=== PATIENT | female | born 1990 | race Caucasian/White ===

== ENCOUNTER 2018-01-20 19:00 | Inpatient (IN) | payer OTHER, SELFPAY ==
[2018-01-20 18:20] VITALS: BMI 28.3
--- NOTE | 2018-01-20 19:23 | PCM.HP.OB ---
- Problem List (1) Active labor Status: Acute History Date of Admission: 01/20/18 Final SOLITARIO: 01/27/18 Gestational age: 39 Weeks and 0 Days History of this : This is a 27 year-old, , at 39 weeks gestational age who presents with regular ctx's. She states ctx's started around 2 pm today. Regular and uncomfortable. No vb, lof. Good FM. Medical History: Medical History (Last Updated 01/20/18 @ 19:25 by Ann-Marie Hilario DO) Depression F32.9 History of DVT (deep vein thrombosis) Z86.718 Allergies codeine Allergy (Verified 01/20/18 18:52) Vomiting Home Medications: Home Medications Vits [Prenatabs FA] 1 tablet PO DAILY 01/20/18 Smoking Status: Never smoker Number of Fetus(es): 1 Heart Tracing: Category 1 TOCO Analysis: Ctx's q 2-4 min History Past Pregnancies: Past Pregnancies Delivery Date Name GA/Weeks Outcome Route Weight Infant Gender Labor Length Anesthesia Delivery Location Provider FOB Labs: GBS pos, 1 hr GTT 101, Rh pos, RI, HepB neg, HIV neg, Syphilis NR, GC/CT neg Expected Delivery Method: Spontaneous Vaginal Review of Systems Gynecological: Reports: - - +Ctx. No VB, LOF. Good FM Physical Exam General: Alert, Oriented x3 HEENT: Atraumatic Lungs: - - Breathing through ctx's Abdomen: Gravid Neurological: Neuro grossly intact Estimated gestational size: Appropriate for gestational size Presentation: Cephalic Cervix Dilation (cm): 3 Station: -2 Effacement (%): 80 Assessment/Plan All Active Problems Active labor (Acute) This is a 27 year-old, , at 39 weeks gestational age who presents with regular contractions and in active labor. - Cervical change from 2 > 3 cm - GBS pos, start PCN - Epidural prn - Will AROM after epidural and once she has progressed more - Routine intrapartum care - Will augment with Pitocin as needed
[2018-01-20] MEDS: Lactated Ringers 1,000 ML 50 ML IV ×2 (19:35→20:38)
[2018-01-20 19:58] LABS: Hematocrit 39.8 % (37-47); Hemoglobin 13.3 g/dl (12.0-15.0); Mean Corp Hgb Conc 33.4 g/gl (32-36); Mean Corpuscular Hgb 29.4 pg (27.0-32.0); Mean Corpuscular Volume 88.1 fL (81-99); Mean Platelet Vol. 13.6 fl (6.2-12.0); Platelet Count 175 K/mm3 (150-450); RBC Distribution Width CV 13.8 % (11.6-14.6); RBC Distribution Width SD 44.1 fl (35.1-43.9); Red Blood Count 4.52 M/mm3 (4.2-5.4); White Blood Count 13.1 K/mm3 (4.4-11.0)
[2018-01-20 20:02] LABS: Scan Indicated on CBC? Y/N NO
[2018-01-20] MEDS: fentaNYL-bupivacaine (epidural) 100 ML BAG EPIDURAL (21:42)
[2018-01-20] MEDS: Ondansetron 4 MG/2 ML Vial IV (22:47)
[2018-01-21] MEDS: Lactated Ringers 1,000 ML 50 ML IV ×2 (00:06→05:52)
[2018-01-21] MEDS: Mag Hydrox/Al Hydrox/Simeth 30 ML UDC PO (04:13)
[2018-01-21] MEDS: fentaNYL-bupivacaine (epidural) 100 ML BAG EPIDURAL (07:47)
--- NOTE | 2018-01-21 07:55 | PCM.PN.BLA ---
Progress Note Delayed entry. Cvx 10/100/0, head well applied to cervix. AROM performed in usual fashion with return of light meconium stained fluid. FHT category 1. [place] with ctx's q 2-4 min. Will labor down until pt is feeling pressure or contractions.
[2018-01-21] MEDS: Oxytocin 30 units/NS 500 ml 30 UNITS/500 ML IV.SOLN 334 UNITS IV (10:12)
--- NOTE | 2018-01-21 10:40 | PCM.OB.VAG ---
- Problem List (1) Active labor Status: Acute Vaginal Delivery Maternal Presentation: Active Labor Amniotic Membrane Rupture Type: Artificial Amniotic Fluid Description: Lightly stained meconium Final SOLITARIO: 01/27/18 Gestational age: 39 Weeks and 1 Days Date of Procedure: 01/21/18 Pre-Operative Diagnosis: Term IUP, active labor Post-Operative Diagnosis: As above Surgery/ Procedure Performed: Spontaneous Vaginal Delivery Type of Anesthesia: Epidural Description of Procedure: Patient complete and +2, and patient pushing. With each push, heart tracing was noted to be 80 bpm for about 1-2 min with recovery to a 130 bpm baseline. Discussed a possible VAVD with the patient and her and reviewed risks. After pushing with a contraction, FHT was noted to be 70 bpm. Had patient push again with quick delivery of the infant. Head, anterior shoulder, and posterior shoulder were delivered without force or delay. Viable female infant was placed on maternal abdomen. Cord was clamped and cut after 60 sec delay. Cord gases were obtained. Placenta was delivered with fundal massage. Uterus was explored x1. Fundus firm bleeding hemostatic. Second-degree perineal laceration repaired in usual fashion with 3-0 Vicryl. EBL 300 cc. Presentation: ROP Placental Delivery Description: Expressed Cord Vessel Description: 3 Vessels Cord Entanglement: None Infant A gender: Female Episiotomy Description: 2nd degree Medications given after delivery: IV Pitocin
[2018-01-21] MEDS: Oxytocin 30 units/NS 500 ml 30 UNITS/500 ML IV.SOLN 167 UNITS IV (10:42)
--- NOTE | 2018-01-21 10:45 | OP.PCM_ITS ---
- Problem List (1) Active labor Status: Acute Vaginal Delivery Maternal Presentation: Active Labor Amniotic Membrane Rupture Type: Artificial Amniotic Fluid Description: Lightly stained meconium Final SOLITARIO: 01/27/18 Gestational age: 39 Weeks and 1 Days Date of Procedure: 01/21/18 Pre-Operative Diagnosis: Term IUP, active labor Post-Operative Diagnosis: As above Surgery/ Procedure Performed: Spontaneous Vaginal Delivery Type of Anesthesia: Epidural Description of Procedure: Patient complete and +2, and patient pushing. With each push, heart tracing was noted to be 80 bpm for about 1-2 min with recovery to a 130 bpm baseline. Discussed a possible VAVD with the patient and her and reviewed risks. After pushing with a contraction, FHT was noted to be 70 bpm. Had patient push again with quick delivery of the infant. Head, anterior shoulder, and posterior shoulder were delivered without force or delay. Viable female infant was placed on maternal abdomen. Cord was clamped and cut after 60 sec delay. Cord gases were obtained. Placenta was delivered with fundal massage. Uterus was explored x1. Fundus firm bleeding hemostatic. Second- degree perineal laceration repaired in usual fashion with 3-0 Vicryl. EBL 300 cc. Presentation: ROP Placental Delivery Description: Expressed Cord Vessel Description: 3 Vessels Cord Entanglement: None A gender: Female Episiotomy Description: 2nd degree Medications given after delivery: IV Pitocin
[2018-01-21] MEDS: Ibuprofen 600 MG Tablet PO ×2 (13:56→20:01)
[2018-01-21 16:15] VITALS: BP 124/82; PULSE 79; RESP 16; TEMP 36.9; O2SAT 99
[2018-01-21 20:00] VITALS: BP 125/80; PULSE 70; RESP 16; TEMP 36.3
[2018-01-22 00:15] VITALS: BP 113/66; PULSE 64; RESP 16; TEMP 36.4
[2018-01-22] MEDS: Ibuprofen 600 MG Tablet PO ×3 (02:10→19:05)
[2018-01-22] MEDS: 0.9% Saline Lock 10 ML Syringe IV (02:30)
[2018-01-22 03:20] VITALS: BP 137/95; PULSE 67; RESP 17; TEMP 36.1
[2018-01-22] MEDS: Enoxaparin 40 MG/0.4 ML Syringe SC (06:02)
[2018-01-22] MEDS: Acetaminophen 500 MG Tablet 1000 MG PO (06:18)
--- NOTE | 2018-01-22 07:48 | PCM.PN.OB ---
Patient Problems: Active and Suspected Problems (Last Updated 01/20/18 @ 19:25 by Ann-Marie Hilario DO) Active labor (Acute) Subjective: Patient doing well. Rangel removed this AM as she had difficulty voiding yesterday due to the discomfort. She has voided in small to moderate amounts three times since spontaneously. Jasson reg diet. Ambulating without difficulty. Pain controlled. . Denies fevers, cp, sob, leg pain. - Physical Exam General: Alert, Oriented x3 HEENT: Atraumatic Lungs: - - No increased resp effort Abdomen: Soft, Non Tender, - - FF@U Extremities: No Calf Tenderness Skin: No rashes Neurological: Neuro grossly intact Psych/Mental Status: Normal Affect Vital Signs Temp Pulse Resp BP Pulse Ox 97.0 F L 67 17 137/95 H 99 01/22/18 03:20 01/22/18 03:20 01/22/18 03:20 01/22/18 03:20 01/21/18 16:15 Oxygen Delivery Method Room Air Weight: 145 lb Body Mass Index (BMI) 28.3 Intake and Output for Last 24 Hours 01/20/18 01/21/18 01/22/18 23:59 23:59 23:59 Intake Total 4924 / 4924 Output Total 500 / 500 4500 / 4500 900 / 900 Balance -500 / -500 424 / 424 -900 / -900 Medical Necessity - Tobacco Use Smoking Status: Never smoker Assessment/Plan All Active Problems (Last Updated 01/20/18 @ 19:25 by Ann-Marie Hilario DO) Active labor (Acute) day #1 s/p - Doing well - AF, VSS. Had 1 isolated mild range BP, will continue to monitor - Now voiding spontaneously. Will check PVR today - - Received first Lovenox injection today. Plan to continue for 6 weeks due to hx of DVT. Rx sent to pharmacy - PPBC: Desires Micronor. Rx sent to pharmacy - Dispo: Routine care
[2018-01-22 08:40] VITALS: BP 124/82; PULSE 71; RESP 16; TEMP 36.6; O2SAT 95
--- NOTE | 2018-01-22 12:48 | NURSING ---
Bladder scan performed directly after patient voided 200ml. Scan showed >475ml of urine in bladder. Fundus is -2, midline, and firm. Patient states I may feel a little pressure.
[2018-01-22 14:00] VITALS: BP 123/77; PULSE 77; RESP 16; TEMP 36.2; O2SAT 97
--- NOTE | 2018-01-22 15:24 | CASEMGMT ---
Social Work Labor and Delivery Unit Consult received and noted for maternal mental health history, specifically depression. Charts have been reviewed and noted that mother of baby a first time mother. Note that history of depression related to situational stress, and likely grief issues, surrounding loss of MOB's grandmother. Plan: Will plan to meet with MOB on 01.23.2018, likely in the morning timeframe for consult, support, and assessment for any resource needs. -AMINA Combs, ZIPPER LINING FOLDER
--- NOTE | 2018-01-22 17:24 | NURSING ---
Bladder scan performed on patient immediately following void. Scanned for >374ml. Uterus is -1, midline, and firm. Bladder is mildly distended upon palpation. Patient does not feel discomfort unless bladder is pressed on. Patient c/o urine stream starting and stopping multiple times while voiding. See physician notification for call to CNM.
[2018-01-22 20:16] VITALS: BP 138/81; PULSE 65; RESP 15; TEMP 36.8; O2SAT 97
[2018-01-23 02:25] VITALS: BP 130/88; PULSE 65; RESP 16; TEMP 36.7
[2018-01-23] MEDS: Ibuprofen 600 MG Tablet PO (02:36)
--- NOTE | 2018-01-23 06:26 | DCINST_ITS ---
Discharge Diet: No Restrictions Discharge Activity: Return to Normal Activity, May not drive while taking narcotic pain medications., May Shower May resume sexual activity in: 4-6 weeks Additional Activity Instructions:: Nothing in the vagina for 4-6 weeks. You may return to work/school in 6 weeks. Call your doctor if your incision/area has: Continuous Slow Oozing, Sudden Increased Bleeding, Increased Pain/ Swelling, Increased Redness, Foul Smelling Discharge Call your doctor if you observe: Fever of 101 or Higher, Inability to urinate, Inability to have a bowel movement, Using more than one pad per hour Additional Instructions: If you experience any of the following, contact your healthcare provider. * Bleeding that soaks a pad every hour for 2 hours * Fever 100.4 or higher * Unrelieved incision or abdominal pain * Swelling, redness, discharge or bleeding from your incision or episiotomy site * Your incision begins to separate * Problems urinating (including inability to urinate or burning while urinating). * Visual changes * Severe headache * Flu-like symptoms * Pain or redness in one of both of your breasts * Pain, warmth, tenderness or swelling in your legs, especially the calf area * Frequent nausea and vomiting * Symptoms of depression or anxiety If you experience any of the following, call 911 or go to the nearest Emergency Room. * Chest pain * Problems breathing * Seizure activity * Partial or complete paralysis of a body part, slurred speech, weakness or drooping of the face, or a sudden inability to walk or hold your balance Allergies/Adverse Reactions: Allergies codeine Allergy (Verified 01/20/18 18:52) Vomiting Medications to take at Discharge Vits [Prenatabs FA] 1 tablet PO DAILY 01/20/18 Enoxaparin Sodium [Lovenox] 40 mg SQ DAILY 42 Days #21 syringe 01/22/18 Norethindrone [Ortho Micronor] 0.35 mg PO DAILY #1 pkg 01/22/18 The following prescriptions were given: Enoxaparin Sodium [Lovenox] 40 mg SQ DAILY 42 Days #21 syringe Norethindrone [Ortho Micronor] 0.35 mg PO DAILY #1 pkg Please Follow Up With: Ann-Marie Hilario DO When: Call to make an appointment with your doctor in 6 weeks. If you had elevated Blood Pressure or 4th degree laceration you will need to be seen in 2 weeks. Please Follow Up With: Vanessa Harrison CNM - 2 week PP visit Primary Care Physician: Pradeep Wallace MD [Primary Care Provider] - Test Results: Test results from this visit will be discussed in further detail at your follow- up appointment, if applicable. Proposed Discharge Date: 01/23/18
--- NOTE | 2018-01-23 06:32 | PN.OBGYN_ITS ---
Patient Problems: Active and Suspected Problems (Last Updated 01/20/18 @ 19:25 by Ann-Marie Hilario DO) Active labor (Acute) Subjective: Patient sitting up in bed at this time; denies any issues or complaints at this time. Patient reports less issues with eliminating, she is able to empty her bladder without issues or difficulty. PVR decreased as the night progressed, patient denies any leaking or dribbling of urine. Denies WILLIS, scotoma or dizziness. Desires discharge to home today. Objective: Nipples without cracks or blisters, nipples slightly flat Abdomen NT x 4 quadrants, FF midline 2FB below umbilicus +2/4 reflexes in LE, no edema, negative calf tenderness to palpation Scant rubra lochia - Physical Exam General: Alert, Oriented x3, Cooperative HEENT: Atraumatic, Normocephalic Neck: Supple Lungs: Normal air movement Cardiovascular: Regular rate, Regular Rhythm Abdomen: Soft, Non Tender Extremities: No edema, Capillary Refill Less than 3 Seconds Skin: No rashes, No breakdown Musculoskeletal: No Tenderness to Palpation of Joints or Extremities Neurological: Cranial nerves II-XII grossly intact Psych/Mental Status: Normal Affect, Appropriate Vital Signs Temp Pulse Resp BP Pulse Ox 98.1 F 65 16 130/88 H 97 01/23/18 02:25 01/23/18 02:25 01/23/18 02:25 01/23/18 02:25 01/22/18 20:16 Oxygen Delivery Method Room Air Weight: 145 lb Body Mass Index (BMI) 28.3 Intake and Output for Last 24 Hours 01/21/18 01/22/18 01/23/18 23:59 23:59 23:59 Intake Total 4924 / 4924 Output Total 4500 / 4500 2600 / 2600 650 / 650 Balance 424 / 424 -2600 / -2600 -650 / -650 Medical Necessity - Tobacco Use Smoking Status: Never smoker Assessment/Plan All Active Problems (Last Updated 01/20/18 @ 19:25 by Ann-Marie Hilario DO) Active labor (Acute) 27 y/o s/p , PPD #2, PP course complicated by Urinary Retention and increased Postvoid Residual 1) Discharge patient to home 2) Education on frequent toileting reviewed 3) RTC to [facility] in 2 and 6 weeks PP. Vanessa CRAWFORD
[2018-01-23] MEDS: Enoxaparin 40 MG/0.4 ML Syringe SC (06:52)
--- NOTE | 2018-01-23 10:52 | CASEMGMT ---
Social Work Labor and Delivery Unit Brief Assessment. Refer to documentation below for details. Date of Referral/Notification: 01/21/2018 Time of Referral: 1310 Referred By: Dr. Zambrano Reason for Referral: maternal history of depression Date of Intervention: 01/22/2018 Time of Intervention: 909 Informant: Medical record and patient/mother of baby (MOB) History: JACKELINE is a 27-year-old female who delivered baby girl Erin Ladd on 01.21.2018. Father of baby is Ryan Ladd, age 26, to MOB since 2017 but involved in a relationship for 5 years. MOB is G1, P0 to 1 after delivering Erin. care good starting at 7 weeks gestation. Baby delivered weighing 7 pounds 2 ounces, Apgars 8 and 9 at 1 and 5 minutes of life. Chart indicates a family history of JACKELINE having a great aunt with downs syndrome, a niece with anencephaly, MOB?s mother with congenital heart issues, and FOB and FOB?s sister with MVP. Both MOB and FOB are college educated and gainfully employed. MOB works in banking and FOB is an scientist propagator. MOB reports history of depression after her grandmother in 2014 and was on Zoloft until about 2017 when MOB and FOB started to try for conception. No reports of any history of suicidal ideation or attempts. MOB reports was on Zoloft, no history of counseling. No reports of any drug or alcohol issues for this MOB, drug screen prenatally on 06.14.2017 negative for any drugs of abuse. Assessment: MOB pleasant, friendly, cooperative, good eye contact, bright affect, appearing happy mood. MOB sitting on edge of bed during social work visit as FOB lying in bed doing skin to skin with baby. FOB also participated in conversation and was appropriate and gentle in handling baby. MOB and FOB both listened to education about depression and anxiety, and MOB expressing awareness of need to talk with others should symptoms arise. MOB reports that she and FOB have talked, and FOB knows he may see signs in MOB before MOB sees signs in herself. Discussed risk factors and possible interventions to assist should symptoms arise (medication, counseling, self-care). MOB did become teary eyed when talking about the loss and grief she experienced after the loss of her grandmother. MOB and FOB did just move 3 weeks ago into a new home, so this is a big life change, but also identified as a positive change as MOB and FOB are now closer in proximity to MOB?s family who will be the primary helpers available to help with the baby when and if needed. FOB?s family is reported be supportive as well, but MOB?s family will be the primary support. FOB is taking a week off work to help. MOB and FOB reports to have needed supplies for baby, report to have adequate help, and MOB reports to feel a connection to baby already. No needs for home going identified. MOB receptive to taking depression packet. Information on [facility] also given, though no referral made at this time. Plan: MOB and baby to home later today. Resources for home going provided. No further needs requested or indicated. -JODY Combs, INTELLIGENCE OPERATIONS
[2018-01-23 11:00] VITALS: BP 123/86; PULSE 95; RESP 16; TEMP 36.9; O2SAT 96
== END 2018-01-23 12:45 | disposition home or self-care (01) | DRG 807 ==
LOC: WPOUT 19:12 → WP 19:12
PROVIDERS: Admitting Provider Obstetrics & Gynecology; Family Provider Family Medicine; PCP Family Medicine; Visit Provider Obstetrics & Gynecology
DX: O77.0 Labor and delivery complicated by meconium in amniotic fluid (principal); Z37.0 Single live birth; O70.1 Second degree perineal laceration during delivery; O99.824 Streptococcus B carrier state complicating childbirth; O90.89 Other complications of the puerperium, not elsewhere classified; R33.8 Other retention of urine; R39.198 Other difficulties with micturition; Z3A.39 39 weeks gestation of pregnancy; Z86.718 Personal history of other venous thrombosis and embolism
CPT/HCPCS: 59025; 59050; 85027; 86850; 86900; 99218; J7120; A4216; G0378; J2405

== ENCOUNTER 2018-01-26 10:00 | Outpatient (CLI) | payer OTHER, SELFPAY | END 2018-01-26 11:00 | disposition home or self-care (01) | LOC: WPOUT 15:38 → WP 15:38 | PROVIDERS: Family Provider Family Medicine; PCP Family Medicine; Referring Provider Obstetrics & Gynecology; Visit Provider Obstetrics & Gynecology | DX: O92.79 Other disorders of lactation (principal) | CPT/HCPCS: 96152 ==

== ENCOUNTER 2018-10-12 07:51 | Emergency (ER) | payer OTHER, SELFPAY ==
[2018-10-12 07:54] VITALS: BP 119/66; PULSE 99; RESP 17; TEMP 37.1; O2SAT 98
--- NOTE | 2018-10-12 08:22 | ED.VISSUMM ---
- ER Visit Summary Date of Service: 10/12/18 Chief Complaint: Headache and muscle aches History of Present Illness: The patient is a 28 F with a headache and muscle aches for 6 days. Associated with nausea, vomiting, decreased appetite, night sweats, chills, and fevers. She did find a dog tick on her scalp. Denies any travel. Denies any changes in her medications. She is breast-feeding. [place] any other associated symptoms like rash, respiratory symptoms, chest pain, diarrhea or abdominal pain, urinary symptoms, joint aches. Denies neck stiffness or change in mental status. Physical Examination: Afebrile and vital signs are unremarkable. Patient alert and oriented. No acute distress. Sitting comfortably. Head and neck unremarkable. Neck shows good range of motion. Heart regular. Lungs clear. Extremities unremarkable and atraumatic. No rash noted. Cranial nerves grossly intact. Test Results: We will check basic labs and test. Will send testing for Lyme and [place] spotted fever. Emergency Department Course and Treatment: This is likely a viral illness. Patient treated with fluids and Zofran. Will check the above labs. CBC unremarkable. BMP also unremarkable. hCG negative. Lyme and [place] spotted fever testing are pending. The patient's tick exposure and timing and [place] spotted fever. Guidelines do not recommend treatment at this point. Furthermore, patient is breast-feeding. Patient will monitor for any new or worsening issues. Return for any problems. Otherwise, follow-up with her PCP this upcoming week. Treatment Plan: As above Disposition: Discharge Impression: 1. Influenza-like illness This note was generated with [employer] dictation software. It may contain incorrect words, spelling, and punctuation that were not noted in review of the chart prior to signing ED Disposition - Plan for ED Patient: Referrals: Pradeep Wallace MD [Primary Care Provider] -
[2018-10-12] MEDS: 0.9% Normal Saline 1,000 ML 999 ML IV (08:50)
[2018-10-12 08:54] LABS: Absolute Lymphocyte Count 5.43 X10^3/ul (0.83-4.51); Basophil# 0.41 X10^3/uL; Basophil% 4.7 % (0-1); Hematocrit 38.2 % (37-47); Hemoglobin 12.8 g/dl (12.0-15.0); Lymphocyte # 5.43 X10^3/ul (4.0); Lymphocyte % 62.6 % (19-41); Mean Corp Hgb Conc 33.5 g/gl (32-36); Mean Corpuscular Hgb 28.3 pg (27.0-32.0); Mean Corpuscular Volume 84.3 fL (81-99); Mean Platelet Vol. 10.8 fl (6.2-12.0); Monocyte# 0.83 X10^3/uL; Monocyte% 9.6 % (0-10); Neutrophil # 1.98 X10^3/uL (2.7-7.7); Neutrophil % 22.9 % (47-70); POSITIVE COUNT NO; POSITIVE DIFFERENTIAL YES; POSITIVE MORPHOLOGY YES; Platelet Count 171 K/mm3 (150-450); RBC Distribution Width CV 13.2 % (11.6-14.6); RBC Distribution Width SD 40.3 fl (35.1-43.9); Red Blood Count 4.53 M/mm3 (4.2-5.4); White Blood Count 8.7 K/mm3 (4.4-11.0)
[2018-10-12 08:55] LABS: Differential Indicated SCAN CRITERIA MET
--- NOTE | 2018-10-12 08:56 | ED.RN ---
REPORTS RECENT HX OF GENERAL BODY ACHES, LOSS OF APPETITE, CHILLS, HEADACHES, LOW GRADE TEMP. SAW PCP STARTED ON ANTIBIOTICS. TICK FOUND ON HEAD LAST PM.
[2018-10-12 09:01] LABS: Internal QC Validated? YES +Cl - CLEAR BKGD; Pregnancy, Serum, hCG Quali. NEGATIVE Negative
[2018-10-12 09:05] LABS: Anion Gap 4 (5-15); BUN 11 mg/dL (7-18); Calcium,Total 8.6 mg/dL (8.5-10.1); Chloride 109 mmol/L (98-107); Creatinine, Serum 0.91 mg/dL (0.55-1.02); EST Glomerular Filtration Rate 77 mL/min (>60); Est Glom Filt Rate - Afr Amer 94 mL/min (>60); Estimated Creatinine Clearance 78.77 ml/min; Glucose 168 mg/dL (74-106); Potassium 3.5 mmol/L (3.5-5.1); Sodium Level 139 mmol/L (136-145)
--- NOTE | 2018-10-12 10:45 | ED.DEP ---
ED Disposition - Plan for ED Patient: Instructions: FEBRILE ILLNESS, Uncertain Cause (Adult) Referrals: Pradeep Wallace MD [Primary Care Provider] -
[2018-10-15 11:26] LABS: Lyme Scn Total Ab w/Rflx <0.91 ISR (0.00-0.90)
[2018-11-23 16:47] LABS: Lyme Ab Screen Interpretation REF LAB
== END 2018-10-12 11:31 | disposition home or self-care (01) ==
LOC: ED 08:36
PROVIDERS: Emergency Provider Emergency Medicine; Family Provider Family Medicine; PCP Family Medicine
DX: J11.1 Influenza due to unidentified influenza virus with other respiratory manifestations (principal); F32.9 Major depressive disorder, single episode, unspecified
CPT/HCPCS: 80048; 84703; 85025; 86618; 96360; 96361; 99283; J7030; A4216; J2405

== ENCOUNTER 2018-10-20 19:11 | Emergency (ER) | payer OTHER, SELFPAY ==
[2018-10-20 19:12] VITALS: BP 135/81; PULSE 86; RESP 16; TEMP 36.7; O2SAT 99; BMI 23.5
[2018-10-20 20:47] LABS: Internal QC Validated? YES +Cl - CLEAR BKGD; Monotest POSITIVE (Negative)
--- NOTE | 2018-10-20 20:59 | ED.VISSUMM ---
- ER Visit Summary Date of Service: 10/20/18 Chief Complaint: [Rash] History of Present Illness: The patient is a 28 F [presents to the emergency department with complaints of feeling ill for about 3 weeks. Patient states she initially started with fever and chills as well as body aches. Patient had a sore throat. She was started on amoxicillin about a week and a half ago. Patient subsequently found a tick in her hair that was identified as a dog tick. Patient presented to the emergency department and was told that she would have labs sent for Lyme disease and as well as [place] spotted fever. Patient states that her Lyme disease testing came back negative. Patient states that the [place] spotted fever testing was not ordered. Today patient noted a rash on her body and so she discontinued the amoxicillin and was started on doxycycline today. Patient still complaining of a sore throat x1 week. Overall she states she actually feels improved. Patient still concerned about [place] spotted fever given the rash and the tach.] Physical Examination: [HEENT-PERRLA, EOMI. Cranial nerves II through XII grossly intact. TMs clear. Mucous membranes moist. Patient has anterior and posterior cervical lymphadenopathy noted. Cardiovascular-regular rate and rhythm without murmur or ectopy Lungs-clear to auscultation, chest wall stable without crepitus or subcu emphysema Abdomen-normoactive bowel sounds, soft, nontender, no rebound or rigidity, no peritoneal signs. Skin exam-patient has an erythematous blanching rash that is diffuse on the face, trunk, and extremities. The rash does not involve the hands or the soles of the feet. There are no petechiae or purpura. There are no vesicles. Extremities-intact ?4, normal range of motion, normal pulses, atraumatic] Test Results: [Patient had a Monospot test that was positive. I initially also ordered IgG and IgM studies for [place] spotted fever. Those results will be pending as a take 3 or 4 days to get results.] Emergency Department Course and Treatment: [At this point I recommended that she continue with her doxycycline until her test results return in 3 or 4 days. I recommended avoiding amoxicillin in the future. She is to completely discontinue the amoxicillin. I feel the rash is likely related to the mononucleosis and the use of amoxicillin. I do not feel patient has exam consistent with [place] spotted fever. I recommended the patient discuss with her CHEMICAL PROJECT ENGINEER on continuing breast-feeding due to risk of transmission of [place] virus in the note.] Treatment Plan: [Advised on pushing fluids and using Tylenol for discomfort and she can also use Benadryl for itching.] Disposition: [Discharged home in stable condition.] Impression: [Mononucleosis Drug eruption rash] This note was generated with [employer] dictation software. It may contain incorrect words, spelling, and punctuation that were not noted in review of the chart prior to signing ED Disposition - Plan for ED Patient: Referrals: Stuart Chavez, FERRY CAPTAIN-C [Primary Care Provider] -
--- NOTE | 2018-10-20 21:04 | DCINST.ED_ITS ---
ED Disposition - Plan for ED Patient: Instructions: Mononucleosis, ALLERGIC REACTION, Drug Referrals: Stuart Chavez, RESTAURANT KITCHEN AND SERVICE MANAGER-C [Primary Care Provider] - Additional Instructions: avoid amoxicillin in the future
--- NOTE | 2018-10-20 21:04 | ED.DEP ---
ED Disposition - Plan for ED Patient: Instructions: Mononucleosis, ALLERGIC REACTION, Drug Referrals: Stuart Chavez, BEAD PICKER-C [Primary Care Provider] - Additional Instructions: avoid amoxicillin in the future
--- NOTE | 2018-10-20 21:08 | ED.DEP ---
ED Disposition - Plan for ED Patient: Instructions: Mononucleosis, ALLERGIC REACTION, Drug Prescriptions: Prednisone [Deltasone] 20 mg PO BID #10 tab Prescription Printed Referrals: Stuart Chavez, MEDICAL ADMINISTRATIVE TECHNICIAN-C [Primary Care Provider] - Additional Instructions: avoid amoxicillin in the future
[2018-10-20] MEDS: dexAMETHasone 4 MG Tablet 10 MG PO (21:20)
[2018-10-20 21:26] VITALS: BP 126/100; PULSE 67; RESP 18; O2SAT 98
== END 2018-10-20 21:27 | disposition home or self-care (01) ==
PROVIDERS: Emergency Provider Emergency Medicine; Family Provider Nurse Practitioner Family; PCP Nurse Practitioner Family
DX: B27.90 Infectious mononucleosis, unspecified without complication (principal); L27.0 Generalized skin eruption due to drugs and medicaments taken internally; T36.0X5A Adverse effect of penicillins, initial encounter; Y92.9 Unspecified place or not applicable
CPT/HCPCS: 86308; 99283

== ENCOUNTER → 2020-05-05 17:10 | Outpatient (CLI) | payer OTHER, SELFPAY | PROVIDERS: PCP Nurse Practitioner Family; Referring Provider Obstetrics & Gynecology; Visit Provider Obstetrics & Gynecology | DX: Z03.818 Encounter for observation for suspected exposure to other biological agents ruled out (principal) | CPT/HCPCS: 87635; C9803; U0005; U0003 ==

== ENCOUNTER 2020-05-10 01:55 | Inpatient (IN) | payer OTHER, SELFPAY ==
[2020-05-10] VITALS (80 sets, daily range): BP systolic 86–137; BP diastolic 43–89; PULSE 63–120; RESP 14–22; TEMP 36.1–37.4; O2SAT 82–100; BMI 29.5
[2020-05-10] MEDS: Lactated Ringers 500 ML 999 ML IV ×2 (02:35→03:56)
[2020-05-10 02:48] LABS: Absolute Neutrophil Count 7.6 X10^3/uL (2.0-7.7); Basophil# 0.04 X10^3/uL; Basophil% 0.4 % (0-1); Eosinophil# 0.17 X10^3/uL; Eosinophils% 1.5 % (0-5); Hemoglobin 13.4 g/dL (12.0-15.0); Mean Corp Hgb Conc 33.5 g/dL (32-36); Mean Corpuscular Volume 89.5 fL (81-99); Mean Platelet Vol. 12.3 fl (6.2-12.0); Monocyte% 6.2 % (0-10); NRBC Flagged by Analyzer 0 % (0-5); Neutrophil # 7.58 X10^3/uL (2.7-7.7); Neutrophil % 67.4 % (47-70); Platelet Count 199 K/mm3 (150-450); RBC Distribution Width CV 13.5 % (11.6-14.6); RBC Distribution Width SD 44.5 fl (35.1-43.9); Red Blood Count 4.47 M/mm3 (4.2-5.4); White Blood Count 11.3 K/mm3 (4.4-11.0)
[2020-05-10] MEDS: Lactated Ringers 1,000 ML 200 ML IV ×2 (03:06→07:31)
[2020-05-10] MEDS: Cefazolin 2 GM in 0.9% Normal Saline 100 ML IV (04:09)
[2020-05-10] MEDS: fentaNYL-bupivacaine (epidural) 100 ML BAG EPIDURAL (04:09)
[2020-05-10] MEDS: Mag Hydrox/Al Hydrox/Simeth 30 ML UDC PO (04:27)
[2020-05-10] MEDS: Ondansetron 4 MG/2 ML Vial IV (04:28)
--- NOTE | 2020-05-10 05:49 | PCM.HP.OB ---
- Problem List (1) 40 weeks gestation of Status: Acute (2) Multiparous Status: Acute (3) Uterine contractions Status: Acute (4) Positive GBS test Status: Acute History Date of Admission: 05/10/20 Final SOLITARIO: 05/08/20 Gestational age: 40 Weeks and 2 Days History of this : This is a 29 year-old, G 2, P 1, at 40 weeks gestational age who presents with ctx's q 1-2 min and cvx 3 cm dilated. No lof, vb. +FM. Medical History: Medical History (Last Updated 01/20/18 @ 19:[address] Ann-Marie Hilario, DO) Depression F32.9 History of DVT (deep vein thrombosis) Z86.718 Allergies codeine Allergy (Verified 10/20/18 20:20) Vomiting Penicillins Allergy (Verified 05/10/20 02:23) Rash Home Medications: Home Medications Norethindrone [Ortho Micronor] 0.35 mg PO DAILY #1 pkg 01/22/18 Sertraline HCl 50 mg PO DAILY 10/12/18 Prednisone [Deltasone] 20 mg PO BID #10 tab 10/20/18 Doxylamine Succinate [Unisom Sleep Aid] 25 mg PO PRN 05/10/20 Vit,Calc76/Iron/Folic [Pnv 29-1 Tablet] 1 ea PO DAILY 05/10/20 Smoking Status: Never smoker Substance Use Type: Sleep Aides Number of Fetus(es): 1 NST - FHR Rate Baby A Baseline: 150 Variability:: Moderate Accelerations:: 15 x 15 Decelerations:: Late - after epidural, no on admission, Prolonged - after epidural, not on admission NST Reactive:: Yes FHR Category:: Category II Uterine Activity:: Ctx q 2-4 min History Past Pregnancies: Past Pregnancies Delivery Date Name GA/ Weeks Outcome Route Wt Sex Labor Length Anesthesia Delivery Location Provider FOB Labs: See [facility] record Expected Infant Delivery Method: Spontaneous Vaginal Physical Exam Vitals: Vital Signs Pulse BP Pulse Ox 85 130/78 H 100 05/10/20 05:44 05/10/20 05:42 05/10/20 05:44 General: Alert, No apparent distress HEENT: Atraumatic Abdomen: Soft, Gravid Extremities:: No edema Neurological: Neuro grossly intact ENGLISH INSTRUCTOR: Normal external genitalia Estimated gestational size: Appropriate for gestational size Presentation: Cephalic Cervix Dilation (cm): 4 Station: -1 Effacement (%): 80 Assessment/Plan All Active Problems (Last Updated 01/20/18 @ 19:[address] Ann-Marie Hilario, DO) Active labor (Acute) 40 weeks gestation of (Acute) Multiparous (Acute) Uterine contractions (Acute) Positive GBS test (Acute) This is a 29 year-old, G 2, P 1, at 40 weeks gestational age admitted in early labor. - Routine intrapartum care - Post epidural FHT with late and prolonged decelerations. AROM was performed for clear fluid and IUPC placed. Scalp stimulation was performed with an acceleration noted. FHT now moderate variability and no further decelerations. Will continue to monitor closely - Epidural for pain control - Ancef for GBS positive - H/o DVT: Will need Lovenox for 6 weeks - Pelvis adequate and EFW expected to be < 4500 g. Anticipate vaginal delivery
[2020-05-10] MEDS: Amnioinfusion- 0.9% NS 1,000 ML IV.SOLN. INTRA-UTER (07:16)
--- NOTE | 2020-05-10 07:34 | PN_ITS ---
Progress Note Called for variable decelerations. At bedside to examine patient and amnioinfusion started. After 15 min of amnioinfusion FHT 150/mod heath/no acce ls/+occasional variable decels. Cont to closely monitor for now. Discussed with pt possibility of a section and questions answered. STROKE Vital Signs/Narrative: Vital Signs Temp Pulse BP Pulse Ox 05/10/20 06:45 98.3 F 109 H 114/65 05/10/20 06:43 107 H 96 05/10/20 06:38 112 H 95 05/10/20 06:33 101 H 97 05/10/20 06:28 120 H 96 05/10/20 06:23 92 95 05/10/20 06:18 103 H 97 05/10/20 06:16 88 120/70 05/10/20 06:13 96 05/10/20 06:08 98 95 05/10/20 06:03 87 96 05/10/20 05:58 104 H 97 05/10/20 05:56 103 H 94 05/10/20 05:53 84 97 05/10/20 05:44 85 100 05/10/20 05:42 97.8 F 71 130/78 H 05/10/20 05:39 79 100 05/10/20 05:34 81 100 05/10/20 05:29 79 100 05/10/20 05:24 98 100 05/10/20 05:22 85 113/69 05/10/20 05:14 86 112/74 100 05/10/20 05:09 99 100 05/10/20 05:06 77 112/69 05/10/20 05:04 63 100 05/10/20 04:56 78 108/63 05/10/20 04:47 87 98 05/10/20 04:42 85 99 05/10/20 04:41 80 111/68 05/10/20 04:37 80 98 05/10/20 04:32 86 99 05/10/20 04:27 93 97 05/10/20 04:26 116/68 05/10/20 04:22 95 99 05/10/20 04:21 97/58 L 05/10/20 04:17 110 H 99 05/10/20 04:16 113/76 05/10/20 04:12 100 111/73 97 05/10/20 04:07 105 H 98 05/10/20 04:06 86 116/76 05/10/20 04:02 83 100 05/10/20 04:01 98.3 F 77 129/87 H 05/10/20 04:00 68 126/84 H 05/10/20 03:57 65 99 05/10/20 03:56 70 86/50 L 05/10/20 03:52 87 98 05/10/20 03:51 94/51 L 05/10/20 03:47 108 H 98 05/10/20 03:42 94 98 05/10/20 03:41 95 114/79 05/10/20 03:37 90 135/88 H 99
--- NOTE | 2020-05-10 08:28 | PCM.PN.BLA ---
Progress Note Cvx 5/80/-1. FHT 150/min heath/no accels/no decels. Scalp stim performed and FHT now 150/mod heath/no accels/no decels. Recommended section given intolerance to labor. Discussed r/b/a to section and patient provides consent and desires to proceed. Will proceed with section. STROKE Vital Signs/Narrative: Vital Signs Temp Pulse BP Pulse Ox 05/10/20 07:39 90 97 05/10/20 07:38 114/66 05/10/20 07:37 98.3 F 05/10/20 06:45 98.3 F 109 H 114/65 05/10/20 06:43 107 H 96 05/10/20 06:38 112 H 95 05/10/20 06:33 101 H 97 05/10/20 06:28 120 H 96 05/10/20 06:23 92 95 05/10/20 06:18 103 H 97 05/10/20 06:16 88 120/70 05/10/20 06:13 96 05/10/20 06:08 98 95 05/10/20 06:03 87 96 05/10/20 05:58 104 H 97 05/10/20 05:56 103 H 94 05/10/20 05:53 84 97 05/10/20 05:44 85 100 05/10/20 05:42 97.8 F 71 130/78 H 05/10/20 05:39 79 100 05/10/20 05:34 81 100 05/10/20 05:29 79 100 05/10/20 05:24 98 100 05/10/20 05:22 85 113/69 05/10/20 05:14 86 112/74 100 05/10/20 05:09 99 100 05/10/20 05:06 77 112/69 05/10/20 05:04 63 100 05/10/20 04:56 78 108/63 05/10/20 04:47 87 98 05/10/20 04:42 85 99 05/10/20 04:41 80 111/68 05/10/20 04:37 80 98 05/10/20 04:32 86 99
[2020-05-10] MEDS: Sodium Citrate/Citric Acid 30 ML UDC PO (08:47)
--- NOTE | 2020-05-10 10:13 | PCM.OPRPT ---
Problem List (1) 40 weeks gestation of Status: Acute (2) Multiparous Status: Acute (3) Uterine contractions Status: Acute (4) Positive GBS test Status: Acute (5) intolerance to labor, delivered, current hospitalization Status: Acute (6) Delivery by section Status: Acute Report of Operation Date of Procedure: 05/10/20 Pre-Operative Diagnosis: 40 week gestation, multiparous patient, early labor, intolerance to labor Post-Operative Diagnosis: As above Surgery/Procedure Performed:: PLTCS via pfannenstiel incision Description of Surgical Findings:: VMI in cephalic presentation with a loose nuchal cord noted. Normal appearing placenta. Normal appearing uterus, bilateral tubes, bilateral ovaries. bath solution maker: Annamaria LUNA Type of Anesthesia:: Spinal Special Medications: None Specimen's removed: Placenta Drains: Rangel Estimated Blood Loss (mL): 2000 Fluids Replaced: 800 Description of Procedure: The patient was taken back to the operating room where epidural was removed and spinal anesthesia was performed. She was prepped and draped in the dorsal position with a leftward tilt in usual sterile fashion. Anesthesia was found be adequate. A Pfannenstiel skin incision was made with a scalpel and this was carried down to the underlying layer of fascia. The fascia was incised in the midline. The fascia was extended laterally using Garcia scissors. The fascia was dissected off of the rectus muscles using a combination of blunt and sharp dissection. The rectus muscles were in the midline. The peritoneum was entered sharply with good visualization of the bladder. The peritoneum was bluntly. A bladder blade was inserted. A low transverse incision was made on the uterus with a scalpel with good visualization of the bladder. The uterine incision was extended bluntly. Using a hand from below from a nurse, the head was flexed and brought to the hysterotomy. The head was delivered followed by anterior shoulder, posterior shoulder, and body of infant without any force or delay. A viable male infant was delivered atraumatically and the cord was clamped and cut immediately. The baby was handed off to the nursery staff. Cord gases were sent. The placenta was removed with manual extraction. Uterus was exteriorized. The uterus was cleared of all clot and debris. Significant bleeding was noted from the left side of the hysterotomy. Ring forceps were placed and a left cervical extension was noted. Vicryl was used in a running locked fashion to close the extension. Vicryl was then used in a running locked fashion to close the hysterotomy. Several additional [id number] sutures were placed for hemostasis. A second imbricating layer of Vicryl was used on the hysterotomy. A small and stable hematoma was noted in the left broad ligament. The uterus was placed back into the abdomen. Hemostasis was again noted and the hematoma was stable. FloSeal was placed along the left cervical extension and left side of the hysterotomy. The peritoneum was closed with Vicryl in a running fashion. The rectus muscles were noted to be hemostatic. The fascia was closed in a running fashion with Vicryl. The subcutaneous space was irrigated and made hemostatic with Bovie cautery. The subcutaneous space was reapproximated. The skin was closed with Monocryl subcuticular fashion. Steri-Strips and dressing were placed. Instrument, sponge, needle counts were correct. The patient was taken to the recovery room in stable condition. Grafts/Implants Used: None - Complications None - Admit VTE Documentation VTE Present on Admission: No VTE Mechan Device Prophylaxis: [facility] [place]'s VTE Pharm Prophylaxis ordered?: No Delivery Classification: RIYA Type of Anesthesia:: Spinal Indications for : Distress Amniotic Fluid Description: Lightly stained meconium Drain: Rangel to straight drain Cord Entanglement: Around neck x 1, loose Nuchal Cord Compression: Without compression Cord Vessel Description: 3 Vessels Gender: Male (1 minute): 8 (5 minute): 9 Delayed cord clamping: No Antibiotic Given: Ancef 2 grams IV x1, Zithromax 500 mg/5 mL X1 Pt instructed on risks of surgery: Bleeding, Infection, Need for Future C-Sections, Injury to surrounding structure(s) including bowel and bladder Complications: None
[2020-05-10] MEDS: Oxytocin 30 units/NS 500 ml 30 UNITS/500 ML IV.SOLN 167 UNITS IV (10:20)
[2020-05-10] MEDS: Lactated Ringers 1,000 ML 999 ML IV (10:33)
[2020-05-10] MEDS: Lactated Ringers 1,000 ML 100 ML IV (13:37)
[2020-05-10] MEDS: Acetaminophen 500 MG Tablet 1000 MG PO ×2 (16:15→22:02)
[2020-05-10] MEDS: Ketorolac 30 MG/ML Syringe IV ×2 (16:16→22:01)
[2020-05-10 16:31] LABS: Hematocrit 27.9 % (37-47); Hemoglobin 9.4 g/dL (12.0-15.0); Mean Corp Hgb Conc 33.7 g/dL (32-36); Mean Corpuscular Hgb 30.8 pg (27.0-32.0); Mean Corpuscular Volume 91.5 fL (81-99); Mean Platelet Vol. 12.2 fl (6.2-12.0); Platelet Count 146 K/mm3 (150-450); RBC Distribution Width CV 13.5 % (11.6-14.6); RBC Distribution Width SD 45.1 fl (35.1-43.9); Red Blood Count 3.05 M/mm3 (4.2-5.4); White Blood Count 17.8 K/mm3 (4.4-11.0)
--- NOTE | 2020-05-10 17:39 | PN_ITS ---
Progress Note Bedside to check on patient and review CBC results. Patient reports lightheadedness and dizziness with movement. She feels fatigued. Otherwise she is doing well. Pain is well controlled. Tolerating regular diet without nausea or vomiting. She has not ambulated out of bed. Grant remains in place. Lochia normal. She is breast-feeding without complaints. VSS Gen- NAD, well appearing, comfortable Abd- Soft, minimal distension, ATTP, no rebounding, no guarding, no rigidity, dressing c/d/i Ext- SCD's in place A/P: S/p primary section for distress in labor - Discussed surgery again with pt and and questions answered. Pt had a left cervical extension resulting in an estimated 2L EBL. Hbg 9 post op from 13 pre op, and discussed acute blood loss anemia likely from cervical extension. Vitals are stable and pt's pain is well controlled. Her abdomen is soft and non- acute. She is likely adjusting from the acute blood loss anemia. Discussed to let us know if her symptoms worsen. Will recheck CBC in AM. To keep grant in overnight. Pt and comfortable with plan - Otherwise she is doing well and has no complaints STROKE Vital Signs/Narrative: Vital Signs Temp Pulse Resp BP BP Pulse Ox 05/10/20 16:00 99.3 F H 84 18 102/60 100 05/10/20 15:01 85 16 100 05/10/20 14:15 97.3 F L 83 16 101/64 99
[2020-05-10 21:09] LABS: Hematocrit 26.4 % (37-47); Hemoglobin 8.9 g/dL (12.0-15.0); Mean Corp Hgb Conc 33.7 g/dL (32-36); Mean Corpuscular Hgb 30.3 pg (27.0-32.0); Mean Corpuscular Volume 89.8 fL (81-99); Mean Platelet Vol. 12.1 fl (6.2-12.0); Platelet Count 143 K/mm3 (150-450); RBC Distribution Width CV 13.7 % (11.6-14.6); RBC Distribution Width SD 44.7 fl (35.1-43.9); Red Blood Count 2.94 M/mm3 (4.2-5.4); White Blood Count 13.3 K/mm3 (4.4-11.0)
[2020-05-10] MEDS: Enoxaparin 40 MG/0.4 ML Syringe SC (21:29)
--- NOTE | 2020-05-10 21:43 | NURSING ---
2130 pt wanting to stand at bedside ok per dr. hubbard wanting pt to direct how muuch is is up by how she feels with dizziness an lightheaddedness. was able to stand for approx 8 min and walk in place without difficulty. back to bed.
[2020-05-10] MEDS: 0.9% Saline Lock 10 ML Syringe IV (22:04)
[2020-05-11 00:15] VITALS: BP 93/53; PULSE 86; RESP 18; TEMP 36.6; O2SAT 96
[2020-05-11] MEDS: Acetaminophen 500 MG Tablet 1000 MG PO ×4 (03:58→22:04)
[2020-05-11] MEDS: 0.9% Saline Lock 10 ML Syringe IV ×2 (03:59→09:58)
[2020-05-11] MEDS: Ketorolac 30 MG/ML Syringe IV ×2 (03:59→09:58)
[2020-05-11 04:08] VITALS: BP 101/68; PULSE 84; RESP 16; TEMP 36.5; O2SAT 99
[2020-05-11 06:11] LABS: Hematocrit 26.4 % (37-47); Hemoglobin 8.9 g/dL (12.0-15.0); Mean Corp Hgb Conc 33.7 g/dL (32-36); Mean Corpuscular Hgb 30.7 pg (27.0-32.0); Mean Platelet Vol. 12.5 fl (6.2-12.0); Platelet Count 153 K/mm3 (150-450); RBC Distribution Width CV 13.9 % (11.6-14.6); RBC Distribution Width SD 45.7 fl (35.1-43.9); White Blood Count 13.8 K/mm3 (4.4-11.0)
[2020-05-11 08:00] VITALS: BP 102/68; PULSE 84; RESP 16; TEMP 36.2
[2020-05-11] MEDS: Senna/Docusate Sodium 1 Tablet PO (09:56)
--- NOTE | 2020-05-11 11:41 | PCM.PN.OB ---
Patient Problems: Active and Suspected Problems 40 weeks gestation of (Acute) Multiparous (Acute) Uterine contractions (Acute) Positive GBS test (Acute) intolerance to labor, delivered, current hospitalization (Acute) Delivery by section (Acute) Subjective: Pain better controlled today, no nausea or vomiting. Average lochia. Denies any chest pain, shortness of breath, lightheadedness or dizziness when up to ambulate. She did have some lightheadedness yesterday but that is resolved. - Physical Exam Vitals/I&O's: Vital Signs Temp Pulse Resp BP Pulse Ox 97.2 F L 84 16 102/68 99 05/11/20 08:00 05/11/20 08:00 05/11/20 08:00 05/11/20 08:00 05/11/20 04:08 Oxygen Delivery Method Room Air Weight: 68.6 kg Body Mass Index (BMI) 29.5 Intake and Output for Last 24 Hours 05/09/20 05/10/20 05/11/20 23:59 23:59 23:59 Intake Total 5793.33 / 5793.33 600 / 600 Output Total 2760 / 2760 1500 / 1500 Balance 3033.33 / 3033.33 -900 / -900 General: Alert, Cooperative, No apparent distress Abdomen: Soft, Distended - moderately, Tender - appropopriately, Extremities: Edema - 1+ Skin: Incision - bandage is clean, dry and intact Laboratory Results 05/10/20 16:05: WBC 17.8 H, RBC 3.05 L, Hgb 9.4 L, Hct 27.9 L, MCV 91.5, MCH 30.8, MCHC 33.7, RDW Std Deviation 45.1 H, RDW Coeff of Shade 13.5, Plt Count 146 L, MPV 12.2 H 05/10/20 21:00: WBC 13.3 H, RBC 2.94 L, Hgb 8.9 L, Hct 26.4 L, MCV 89.8, MCH 30.3, MCHC 33.7, RDW Std Deviation 44.7 H, RDW Coeff of Shade 13.7, Plt Count 143 L, MPV 12.1 H 05/11/20 06:00: WBC 13.8 H, RBC 2.90 L, Hgb 8.9 L, Hct 26.4 L, MCV 91.0, MCH 30.7, MCHC 33.7, RDW Std Deviation 45.7 H, RDW Coeff of Shade 13.9, Plt Count 153, MPV 12.5 H Current Medications Acetaminophen (Acetaminophen 500 Mg Tablet) 1,000 mg PO Q6H [facility] Last Admin: 05/11/20 09:57 Dose: 1,000 mg Documented by: Bisacodyl (Bisacodyl 10 Mg Suppository) 10 mg RECTAL UD PRN PRN Reason: If no BM Enoxaparin Sodium (Enoxaparin 40 Mg/0.4 Ml Syringe) 40 mg SC DAILY@2130 [facility] Last Admin: 05/10/20 21:29 Dose: 40 mg Documented by: Hydrocortisone (Hydrocortisone 2.5% Crm) 1 applic TOPICAL TID PRN PRN; Protocol PRN Reason: Discomfort Ibuprofen (Ibuprofen 600 Mg Tablet) 600 mg PO Q6H [facility] Methylergonovine Maleate (Methylergonovine 0.2 Mg/Ml Ampul) 0.2 mg IM X1 PRN PRN Reason: Uterine Atony Naloxone HCl (Naloxone 0.4 Mg/Ml Syringe) 0.02 mg IV Q1M PRN PRN Reason: RR <10 and pt unresponsive Ondansetron HCl (Ondansetron 4 Mg/2 Ml Vial) 4 mg IV Q4H PRN PRN PRN Reason: Nausea Oxycodone HCl (Oxycodone 5 Mg Tablet) 5 - 10 mg PO Q4H PRN PRN PRN Reason: Pain Score 4-10 Prochlorperazine Edisylate (Prochlorperazine 10 Mg/2 Ml Vial) 10 mg IV Q6H PRN PRN PRN Reason: NAUSEA Senna/Docusate Sodium (Senna/Docusate Sodium 1 Tablet) 0 tablet PO DAILY [facility] Last Admin: 05/11/20 09:56 Dose: 1 tablet Documented by: Simethicone (Simethicone 80 Mg Tablet) 80 mg PO PCHS PRN PRN Reason: Indigestion/stomach pain Sodium Chloride (0.9% Saline Lock 10 Ml Syringe) 5 - 15 ml IV UD PRN PRN Reason: SALINE FLUSH Last Admin: 05/11/20 09:58 Dose: 10 ml Documented by: Medical Necessity - Tobacco Use Smoking Status: Never smoker Assessment/Plan All Active Problems Active labor (Acute) 40 weeks gestation of (Acute) Multiparous (Acute) Uterine contractions (Acute) Positive GBS test (Acute) intolerance to labor, delivered, current hospitalization (Acute) Delivery by section (Acute) POD#1 s/p primary c/s w/ acute blood loss hemorrhage, calculated EBL is approx 1700 cc. H/H are stable now. Patient tolerating anemia well. ambulate infant is and doing well
[2020-05-11 14:00] VITALS: BP 106/74; PULSE 89; RESP 16; TEMP 36.6
[2020-05-11] MEDS: Ibuprofen 600 MG Tablet PO ×2 (16:13→22:03)
[2020-05-11 19:52] VITALS: BP 117/72; PULSE 92; RESP 16; TEMP 36.6
[2020-05-11] MEDS: Enoxaparin 40 MG/0.4 ML Syringe SC (22:04)
[2020-05-12 01:47] VITALS: BP 106/64; PULSE 76; RESP 16; TEMP 36.6
--- NOTE | 2020-05-12 03:10 | NURSING ---
Taking over pt and at this time.
[2020-05-12 04:35] VITALS: BP 111/77; PULSE 84; RESP 18; TEMP 36.2; O2SAT 95
[2020-05-12] MEDS: Ibuprofen 600 MG Tablet PO ×2 (04:35→09:27)
[2020-05-12] MEDS: Acetaminophen 500 MG Tablet 1000 MG PO ×2 (04:36→10:28)
[2020-05-12 08:18] VITALS: BP 109/83; PULSE 94; RESP 18; TEMP 36.3; O2SAT 99
--- NOTE | 2020-05-12 08:22 | PN.OBGYN_ITS ---
Patient Problems: Active and Suspected Problems 40 weeks gestation of (Acute) Multiparous (Acute) Uterine contractions (Acute) Positive GBS test (Acute) intolerance to labor, delivered, current hospitalization (Acute) Delivery by section (Acute) Subjective: pt seen at bedside, doing well. pt reports good pain control. lochia mild. Breast feeding. - Physical Exam Vitals/I&O's: Vital Signs Temp Pulse Resp BP Pulse Ox 97.1 F L 84 18 111/77 95 05/12/20 04:35 05/12/20 04:35 05/12/20 04:35 05/12/20 04:35 05/12/20 04:35 Oxygen Delivery Method Room Air Weight: 68.6 kg Body Mass Index (BMI) 29.5 Intake and Output for Last 24 Hours 05/10/20 05/11/20 05/12/20 23:59 23:59 23:59 Intake Total 5793.33 / 5793.33 600 / 600 Output Total 2760 / 2760 2500 / 2500 Balance 3033.33 / 3033.33 -1900 / -1900 General: Alert, Oriented x3 Abdomen: Soft, Non Tender, Non-Distended, - - fundus firm Extremities: No Calf Tenderness Current Medications Acetaminophen (Acetaminophen 500 Mg Tablet) 1,000 mg PO Q6H [facility] Last Admin: 05/12/20 04:36 Dose: 1,000 mg Documented by: Bisacodyl (Bisacodyl 10 Mg Suppository) 10 mg RECTAL UD PRN PRN Reason: If no BM Enoxaparin Sodium (Enoxaparin 40 Mg/0.4 Ml Syringe) 40 mg SC DAILY@2130 [facility] Last Admin: 05/11/20 22:04 Dose: 40 mg Documented by: Hydrocortisone (Hydrocortisone 2.5% Crm) 1 applic TOPICAL TID PRN PRN; Protocol PRN Reason: Discomfort Ibuprofen (Ibuprofen 600 Mg Tablet) 600 mg PO Q6H [facility] Last Admin: 05/12/20 04:35 Dose: 600 mg Documented by: Methylergonovine Maleate (Methylergonovine 0.2 Mg/Ml Ampul) 0.2 mg IM X1 PRN PRN Reason: Uterine Atony Naloxone HCl (Naloxone 0.4 Mg/Ml Syringe) 0.02 mg IV Q1M PRN PRN Reason: RR <10 and pt unresponsive Ondansetron HCl (Ondansetron 4 Mg/2 Ml Vial) 4 mg IV Q4H PRN PRN PRN Reason: Nausea Oxycodone HCl (Oxycodone 5 Mg Tablet) 5 - 10 mg PO Q4H PRN PRN PRN Reason: Pain Score 4-10 Prochlorperazine Edisylate (Prochlorperazine 10 Mg/2 Ml Vial) 10 mg IV Q6H PRN PRN PRN Reason: NAUSEA Senna/Docusate Sodium (Senna/Docusate Sodium 1 Tablet) 0 tablet PO DAILY [facility] Last Admin: 05/11/20 09:56 Dose: 1 tablet Documented by: Simethicone (Simethicone 80 Mg Tablet) 80 mg PO PCHS PRN PRN Reason: Indigestion/stomach pain Sodium Chloride (0.9% Saline Lock 10 Ml Syringe) 5 - 15 ml IV UD PRN PRN Reason: SALINE FLUSH Last Admin: 05/11/20 09:58 Dose: 10 ml Documented by: Medical Necessity - Tobacco Use Smoking Status: Never smoker Assessment/Plan All Active Problems Active labor (Acute) 40 weeks gestation of (Acute) Multiparous (Acute) Uterine contractions (Acute) Positive GBS test (Acute) intolerance to labor, delivered, current hospitalization (Acute) Delivery by section (Acute) POD#2, doing well pain mgmt dc home ambulation
--- NOTE | 2020-05-12 08:35 | PCM.DC.BLA ---
Discharge Summary Date of Admission: 05/10/20 Date of Discharge: 05/12/20 Summary: Pt was admitted to L&D on 05/10/20 for labor- pt with intolerance to labor and underwent Primary LTCS with EBL 2000cc. Pt had uncomplicated post op course and was discharged home on POD#2 in stable condition. pt will remain on Lovenox for 6 weeks post . Iron supplementation ordered. Patient Problems: Active and Suspected Problems 40 weeks gestation of (Acute) Multiparous (Acute) Uterine contractions (Acute) Positive GBS test (Acute) intolerance to labor, delivered, current hospitalization (Acute) Delivery by section (Acute) - Physical Exam Vitals/I&O's: Vital Signs Temp Pulse Resp BP Pulse Ox 97.4 F L 94 18 109/83 H 99 05/12/20 08:18 05/12/20 08:18 05/12/20 08:18 05/12/20 08:18 05/12/20 08:18 Oxygen Delivery Method Room Air Weight: 68.6 kg Body Mass Index (BMI) 29.5 Intake and Output for Last 24 Hours 05/10/20 05/11/20 05/12/20 23:59 23:59 23:59 Intake Total 5793.33 / 5793.33 600 / 600 Output Total 2760 / 2760 2500 / 2500 Balance 3033.33 / 3033.33 -1900 / -1900 Current Medications Acetaminophen (Acetaminophen 500 Mg Tablet) 1,000 mg PO Q6H [facility] Last Admin: 05/12/20 04:36 Dose: 1,000 mg Documented by: Bisacodyl (Bisacodyl 10 Mg Suppository) 10 mg RECTAL UD PRN PRN Reason: If no BM Enoxaparin Sodium (Enoxaparin 40 Mg/0.4 Ml Syringe) 40 mg SC DAILY@2130 [facility] Last Admin: 05/11/20 22:04 Dose: 40 mg Documented by: Hydrocortisone (Hydrocortisone 2.5% Crm) 1 applic TOPICAL TID PRN PRN; Protocol PRN Reason: Discomfort Ibuprofen (Ibuprofen 600 Mg Tablet) 600 mg PO Q6H [facility] Last Admin: 05/12/20 04:35 Dose: 600 mg Documented by: Methylergonovine Maleate (Methylergonovine 0.2 Mg/Ml Ampul) 0.2 mg IM X1 PRN PRN Reason: Uterine Atony Naloxone HCl (Naloxone 0.4 Mg/Ml Syringe) 0.02 mg IV Q1M PRN PRN Reason: RR <10 and pt unresponsive Ondansetron HCl (Ondansetron 4 Mg/2 Ml Vial) 4 mg IV Q4H PRN PRN PRN Reason: Nausea Oxycodone HCl (Oxycodone 5 Mg Tablet) 5 - 10 mg PO Q4H PRN PRN PRN Reason: Pain Score 4-10 Prochlorperazine Edisylate (Prochlorperazine 10 Mg/2 Ml Vial) 10 mg IV Q6H PRN PRN PRN Reason: NAUSEA Senna/Docusate Sodium (Senna/Docusate Sodium 1 Tablet) 0 tablet PO DAILY [facility] Last Admin: 05/11/20 09:56 Dose: 1 tablet Documented by: Simethicone (Simethicone 80 Mg Tablet) 80 mg PO PCHS PRN PRN Reason: Indigestion/stomach pain Sodium Chloride (0.9% Saline Lock 10 Ml Syringe) 5 - 15 ml IV UD PRN PRN Reason: SALINE FLUSH Last Admin: 05/11/20 09:58 Dose: 10 ml Documented by:
[2020-05-12] MEDS: Senna/Docusate Sodium 1 Tablet PO (09:27)
--- NOTE | 2020-05-12 09:29 | DCINST_ITS ---
Discharge Diet: No Restrictions Discharge Activity: Return to Normal Activity, May not drive while taking narcotic pain medications., May Shower May resume sexual activity in: 4-6 weeks Additional Activity Instructions:: Nothing in the vagina for 4-6 weeks. You may return to work/school in 6 weeks. Call your doctor if your incision/area has: Continuous Slow Oozing, Sudden Increased Bleeding, Increased Pain/ Swelling, Increased Redness, Foul Smelling Discharge Additional Instructions: If you experience any of the following, contact your healthcare provider. * Bleeding that soaks a pad every hour for 2 hours * Fever 100.4 or higher * Unrelieved incision or abdominal pain * Swelling, redness, discharge or bleeding from your incision or episiotomy site * Your incision begins to separate * Problems urinating (including inability to urinate or burning while urinating). * Visual changes * Severe headache * Flu-like symptoms * Pain or redness in one of both of your breasts * Pain, warmth, tenderness or swelling in your legs, especially the calf area * Frequent nausea and vomiting * Symptoms of depression or anxiety If you experience any of the following, call 911 or go to the nearest Emergency Room. * Chest pain * Problems breathing * Seizure activity * Partial or complete paralysis of a body part, slurred speech, weakness or drooping of the face, or a sudden inability to walk or hold your balance Allergies/Adverse Reactions: Allergies codeine Allergy (Verified 10/20/18 20:20) Vomiting Penicillins Allergy (Verified 05/10/20 02:23) Rash Medications to take at Discharge Sertraline HCl 50 mg PO DAILY 10/12/18 Acetaminophen [Tylenol] 1,000 mg PO Q6H #60 tab 05/12/20 Enoxaparin [Lovenox] 40 mg SC DAILY@0 45 Days #45 syringe 05/12/20 Ferrous Sulfate 325 mg PO BID #60 tab 05/12/20 Ibuprofen [Motrin] 600 mg PO Q6H #60 tab 05/12/20 Senna/Docusate Sodium [Senokot-S] 1 tab PO DAILY #30 tab 05/12/20 SimETHICONE [Mylicon] 80 mg PO PCHS PRN #30 tab 05/12/20 The following prescriptions were given: Ferrous Sulfate 325 mg PO BID #60 tab Transmission Status: Received by LUIS VILLATORO RD Enoxaparin [Lovenox] 40 mg SC DAILY@2130 45 Days #45 syringe Transmission Status: Received by LUIS VILLATORO RD Ibuprofen [Motrin] 600 mg PO Q6H #60 tab Transmission Status: Received by LUIS SHEPARDVELAND LESLIE SimETHICONE [Mylicon] 80 mg PO PCHS PRN #30 tab PRN Reason: Indigestion/stomach pain Transmission Status: Received by LUIS VILLATORO RD Senna/Docusate Sodium [Senokot-S] 1 tab PO DAILY #30 tab Transmission Status: Received by LUIS VILLATORO RD Acetaminophen [Tylenol] 1,000 mg PO Q6H #60 tab Transmission Status: Received by LUIS VILLATORO RD When: Call to make an appointment with your doctor in 6 weeks. If you had elevated Blood Pressure or 4th degree laceration you will need to be seen in 2 weeks. Primary Care Physician: Stuart Chavez OUTPATIENT PHLEBOTOMIST, OUTPATIENT PHLEBOTOMIST-C [Primary Care Provider] - Test Results: Test results from this visit will be discussed in further detail at your follow- up appointment, if applicable.
--- NOTE | 2020-05-12 09:29 | PCM.DCVAG ---
Discharge Diet: No Restrictions Discharge Activity: Return to Normal Activity, May not drive while taking narcotic pain medications., May Shower May resume sexual activity in: 4-6 weeks Additional Activity Instructions:: Nothing in the vagina for 4-6 weeks. You may return to work/school in 6 weeks. Call your doctor if your incision/area has: Continuous Slow Oozing, Sudden Increased Bleeding, Increased Pain/ Swelling, Increased Redness, Foul Smelling Discharge Additional Instructions: If you experience any of the following, contact your healthcare provider. Bleeding that soaks a pad every hour for 2 hours Fever 100.4 or higher Unrelieved incision or abdominal pain Swelling, redness, discharge or bleeding from your incision or episiotomy site Your incision begins to separate Problems urinating (including inability to urinate or burning while urinating). Visual changes Severe headache Flu-like symptoms Pain or redness in one of both of your breasts Pain, warmth, tenderness or swelling in your legs, especially the calf area Frequent nausea and vomiting Symptoms of depression or anxiety If you experience any of the following, call 911 or go to the nearest Emergency Room. Chest pain Problems breathing Seizure activity Partial or complete paralysis of a body part, slurred speech, weakness or drooping of the face, or a sudden inability to walk or hold your balance Allergies/Adverse Reactions: Allergies codeine Allergy (Verified 10/20/18 20:20) Vomiting Penicillins Allergy (Verified 05/10/20 02:23) Rash Medications to take at Discharge Sertraline HCl 50 mg PO DAILY 10/12/18 Acetaminophen [Tylenol] 1,000 mg PO Q6H #60 tab 05/12/20 Enoxaparin [Lovenox] 40 mg SC DAILY@2129 45 Days #45 syringe 05/12/20 Ferrous Sulfate 325 mg PO BID #60 tab 05/12/20 Ibuprofen [Motrin] 600 mg PO Q6H #60 tab 05/12/20 Senna/Docusate Sodium [Senokot-S] 1 tab PO DAILY #30 tab 05/12/20 SimETHICONE [Mylicon] 80 mg PO PCHS PRN #30 tab 05/12/20 The following prescriptions were given: Ferrous Sulfate 325 mg PO BID #60 tab Transmission Status: Received by [facility] Enoxaparin [Lovenox] 40 mg SC DAILY@2130 45 Days #45 syringe Transmission Status: Received by [facility] Ibuprofen [Motrin] 600 mg PO Q6H #60 tab Transmission Status: Received by [facility] SimETHICONE [Mylicon] 80 mg PO PCHS PRN #30 tab PRN Reason: Indigestion/stomach pain Transmission Status: Received by [facility] Senna/Docusate Sodium [Senokot-S] 1 tab PO DAILY #30 tab Transmission Status: Received by [facility] Acetaminophen [Tylenol] 1,000 mg PO Q6H #60 tab Transmission Status: Received by [facility] When: Call to make an appointment with your doctor in 6 weeks. If you had elevated Blood Pressure or 4th degree laceration you will need to be seen in 2 weeks. Primary Care Physician: Stuart Chavez CRANE FOLLOWER, CRANE FOLLOWER-C [Primary Care Provider] - Test Results: Test results from this visit will be discussed in further detail at your follow-up appointment, if applicable.
== END 2020-05-12 11:10 | disposition home or self-care (01) | DRG 787 ==
PROVIDERS: Admitting Provider Obstetrics & Gynecology; PCP Nurse Practitioner Family; Visit Provider Obstetrics & Gynecology
DX: O76 Abnormality in fetal heart rate and rhythm complicating labor and delivery (principal); D62 Acute posthemorrhagic anemia; O71.3 Obstetric laceration of cervix; O90.81 Anemia of the puerperium; O69.81X0 Labor and delivery complicated by cord around neck, without compression, not applicable or unspecified; O77.0 Labor and delivery complicated by meconium in amniotic fluid; O99.824 Streptococcus B carrier state complicating childbirth; Z86.718 Personal history of other venous thrombosis and embolism; Z3A.40 40 weeks gestation of pregnancy; Z37.0 Single live birth
CPT/HCPCS: 59025; 59050; 85025; 85027; 86850; 86900; 86901; 99218; J7030; J7120; A4216; G0378; J2405

== ENCOUNTER 2020-05-13 11:26 | Emergency (ER) | payer OTHER, SELFPAY ==
[2020-05-10 02:27] VITALS: BMI 29.5
[2020-05-13 11:28] VITALS: BP 133/102; PULSE 96; RESP 17; TEMP 36.4; O2SAT 100; BMI 27.8
[2020-05-13 11:33] VITALS: BP 129/95; PULSE 88; RESP 14; O2SAT 99
--- NOTE | 2020-05-13 11:57 | CT_ITS ---
STUDY: CT BRAIN WITHOUT CONTRAST REASON FOR EXAM: Female, 29 years old. NUMBNESS TO RT SIDE OF MOUTH SINCE 9 AM. RECENT JUST DC''D FROM HOSPITAL YESTERDAY RADIATION DOSAGE (If Supplied By Facility): CTDIvol = ( 44.99 ) mGy, DLP = ( 745.49 ) mGycm TECHNIQUE: Transaxial CT imaging of the brain was performed without administration of intravenous contrast material. Individualized dose optimization techniques were used for this CT. COMPARISON: No relevant priors. FINDINGS: Normal soft tissue structures. Normal calvarium. Normal size ventricles and extra-axial spaces for the patient''s age. Normal white matter tracts of the cerebral hemispheres. Normal basal ganglia and thalami. Normal brainstem. Normal cerebellum. There is no intracranial hemorrhage. There are no findings of an acute ischemic infarction. Normal visualized paranasal sinuses. CT/Brain/Head without Contrast IMPRESSION: Normal unenhanced CT scan of the brain. Electronically Signed: Max Noguear MD at 12:31 EST , Service support ,
--- NOTE | 2020-05-13 12:21 | ED.DCSUM_ITS ---
- ER Visit Summary Date of Service: 05/13/20 Chief Complaint: Right facial paresthesias History of Present Illness: The patient is a 29 F who presents with paresthesias to her right lower lip that began today. Patient states she was having some weakness. Patient states when she was brushing her teeth today she had difficulty holding the water in her mouth. Patient admits to mild headache patient denies any visual changes. Patient states she did have some pain in her neck yesterday. Patient denies any chest pain or shortness of breath. Patient denies any difficulty breathing or difficulty swallowing. Patient states she did have a 3 days ago and is on Lovenox because she has had DVTs in the past after surgery. Physical Examination: Vital signs are stable except for blood pressure of 125/95. Patient is afebrile. Patient is in no acute distress. Cranial nerves II through XII are intact except for very slight weakness of her smile. Wrinkling of the forehead is equal bilaterally. Strength is 5/5 bilateral in the upper and lower extremities. There are no sensory deficits noted. Heart was regular rate and rhythm. Lungs are clear and equal bilaterally. Abdomen is soft. Bowel sounds are normal. There is some mild incisional tenderness. Extremities are intact. There is no calf tenderness or edema. Test Results: CT scan of the brain was obtained. There is no acute intracranial abnormality noted. This was interpreted by the radiologist and reviewed by myself. CBC shows a slight leukocytosis of 12.0. Comprehensive metabolic profile was essentially within normal limits. Emergency Department Course and Treatment: On reevaluation, patient was still having some paresthesias. I do not appreciate any facial weakness. She was advised that this could be the beginning of a Chauhan's palsy. Patient was given a prescription for prednisone. Repeat blood pressure was 117/90. I did discuss the case with her CITY DETECTIVE. The patient's blood pressure does not need to be treated at this time. Patient was instructed to follow-up with her primary care physician and CITY DETECTIVE as scheduled. Patient understood and was agreeable with the plan. All questions were answered. Disposition: Discharge home Impression: 1. Facial paresthesias 2. 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 It may contain incorrect words, spelling, and punctuation that were not noted in review of the chart prior to signing ED Disposition - Plan for ED Patient: Disposition: Home or Assisted Living Diagnosis: Facial paresthesia Instructions: ED Paraesthesias, ED Chauhan's Palsy Prescriptions: Prednisone [Deltasone] 60 mg PO DAILY #12 tab Transmission Status: Pending to [facility] Referrals: Stuart Chavez AVIATION MEDICINE SPECIALIST, AVIATION MEDICINE SPECIALIST-C [Primary Care Provider] - 5-7 Days Ann-Marie Hilario DO [STAFF PHYSICIAN] - Keep Wilmer appointment
[2020-05-13 12:41] LABS: Absolute Lymphocyte Count 2.63 X10^3/uL (0.83-4.51); Absolute Neutrophil Count 8.2 X10^3/uL (2.0-7.7); Basophil# 0.05 X10^3/uL; Basophil% 0.4 % (0-1); Eosinophil# 0.53 X10^3/uL; Eosinophils% 4.4 % (0-5); Hematocrit 34.4 % (37-47); Hemoglobin 11.4 g/dL (12.0-15.0); Lymphocyte # 2.63 X10^3/ul (4.0); Mean Corp Hgb Conc 33.1 g/dL (32-36); Mean Corpuscular Hgb 30.2 pg (27.0-32.0); Mean Platelet Vol. 11.3 fl (6.2-12.0); Monocyte# 0.48 X10^3/uL; NRBC Flagged by Analyzer 0 % (0-5); Neutrophil # 8.15 X10^3/uL (2.7-7.7); Neutrophil % 68.2 % (47-70); Platelet Count 298 K/mm3 (150-450); RBC Distribution Width CV 13.8 % (11.6-14.6); RBC Distribution Width SD 46.4 fl (35.1-43.9); Red Blood Count 3.78 M/mm3 (4.2-5.4)
[2020-05-13 12:54] LABS: ALB/GLOB Ratio 0.6 RATIO (0.9-2.4); AST(SGOT) 32 U/L (15-37); Alanine Aminotransfer ALT/SGPT 35 U/L (13-56); Albumin, Serum 2.6 g/dL (3.2-5.0); Alkaline Phosphatase 96 U/L (45-117); Anion Gap 5 (5-15); BUN 12 mg/dL (7-18); BUN/Creat Ratio 17.9 RATIO (10-20); Calcium,Total 8.7 mg/dL (8.5-10.1); Chloride 110 mmol/L (98-107); Creatinine, Serum 0.67 mg/dL (0.55-1.02); EST Glomerular Filtration Rate 109 mL/min (>60); Est Glom Filt Rate - Afr Amer 132 mL/min (>60); Estimated Creatinine Clearance 88.19 ml/min; Glucose 87 mg/dL (74-106); Protein, Total 6.6 g/dL (6.4-8.2); Sodium Level 140 mmol/L (136-145)
[2020-05-13] MEDS: predniSONE 20 MG Tablet 60 MG PO (14:08)
[2020-05-13 14:09] VITALS: BP 118/89; PULSE 97; RESP 20; O2SAT 97
== END 2020-05-13 14:37 | disposition home or self-care (01) ==
PROVIDERS: Emergency Provider Emergency Medicine; PCP Nurse Practitioner Family
DX: R20.2 Paresthesia of skin (principal); Z86.718 Personal history of other venous thrombosis and embolism; Z79.01 Long term (current) use of anticoagulants
CPT/HCPCS: 70450; 80053; 85025; 99285

== ENCOUNTER → 2023-10-11 | Outpatient (CLI) | payer OTHER, SELFPAY ==
--- NOTE | 2023-10-11 09:40 | NM_ITS ---
CLINICAL: 33-year-old female with history of abdominal pain. RADIONUCLIDE HEPATOBILIARY SCINTIGRAPHY COMPARISON: None available FINDINGS: Following the intravenous administration of 5.6 mCi of 99m Tc Mebrofenin, hepatobiliary images reveal: 1. Relatively prompt and homogeneous radiopharmaceutical concentration is noted by a normal sized liver. No parenchymal defects are identified. 2. Gallbladder activity is identified at 15 minutes post radiopharmaceutical administration. 3. Small intestinal tract is not visualized during 60 minutes of pre-CCK sequential imaging. Small bowel activity is identified following the administration of cholecystokinin. 4. Washout of the radiopharmaceutical by the hepatic parenchyma appears qualitatively normal. Cholecystokinin (0.02 ug/kg) was administered intravenously over a 30-minute period. The post CCK gallbladder ejection fraction calculated at 20 minutes following Cholecystokinin administration was noted to be 59.0 % (normal greater than 35%). During 30 minutes of post CCK imaging, there is no scintigraphic evidence of reflux of the radiotracer into the common hepatic duct or refilling of the gallbladder. NM/Hepatobilliary Img w/Pharm Int IMPRESSION: 1. NORMAL 99m Tc Mebrofenin hepatobiliary imaging examination with Cholecystokinin. A. A gallbladder ejection fraction calculated to be greater than 35% following the administration of Cholecystokinin makes the probability of functional hepatobiliary disease (gallbladder and/or sphincter of Oddi dyskinesia) and/or organic hepatobiliary disease (chronic acalculous cholecystitis and/or cystic duct syndrome) to be low. (Winifred Tafoya et al, Journal of Nuclear Medicine 32:1695, 1991). Electronically Signed: Stuart Valdovinos DO at 8:30 EDT ,
== END | disposition home or self-care (01) ==
LOC: NM 09:40
PROVIDERS: PCP Nurse Practitioner Family; Referring Provider Surgery; Visit Provider Surgery
DX: R10.9 Unspecified abdominal pain (principal)
CPT/HCPCS: 78227; A9537; J2805

== ENCOUNTER 2023-11-09 11:35 | Day surgery (SDC) | payer OTHER, SELFPAY ==
[2023-11-09] VITALS (8 sets, daily range): BP systolic 105–123; BP diastolic 78–93; PULSE 66–82; RESP 16; TEMP 36.3–36.4; O2SAT 96–100; BMI 26.6
--- NOTE | 2023-11-09 | GASB_PTH ---
PATIENT: BRIANDA PIZARRO LOC: EN U#:[id number] AGE/SX: 33/F ROOM: RE11/09/[address]: Dr. Anusha Bass MD : 1990 BED: DIS: 11/09/2023 SPEC #: [id number] RECD: 11/09/23 10:33 STATUS: RUBY ZULEIMA #: [id number] TYRESE: 11/09/23 00:[address]: Anusha Bass DEPT: SURGICAL PATHOLOGY RECD BY: Marquise Celis ENTERED: 11/10/23 10:34 SP TYPE: Gastric Bx OTHR DR: Stuart Chavez, ELECTROENCEPHALOGRAPHIC TECHNOLOGIST-C Tissues: Gastric mucous membrane Procedures: Surgery Specimen Level IV HEADER OPERATION: EGD with biopsies PRE-OP DIAGNOSIS: Epigastric abdominal pain, right upper quadrant pain TISSUE SUBMITTED: Antrum biopsy MICROSCOPIC DIAGNOSIS Gastric antrum, biopsy: Minimal chronic inflammation. See comment. Shamir 11/13/2023 COMMENT The results of immunohistochemistry for Helicobacter pylori will be reported separately ([id number]). MICROSCOPIC DESCRIPTION Slides are reviewed. GROSS DESCRIPTION Received in fixative is one container labeled with the patient's name and designated Antrum biopsy. The specimen consists of one irregular fragment of light cano soft tissue that measures 0.3 x 0.3 x 0.1 cm. The specimen is totally submitted in one cassette. ANANTH/ 11/10/2023 TC:3 CPT:46269
--- NOTE | 2023-11-09 11:48 | PCM.PRE.AN2 ---
ASA Classification* ASA Classification ASA Classification: 2 Assessment & Plan Anesthesia* Anesthesia Assessment Anesthesia Assessment: Discussed sedation and/or anesthesia options, risks, benefits, and alternatives with patient/parents/legal guardian/POA. Questions invited. The patient/parents/legal guardian/POA seems to understand and agrees to proceed with anesthesia plan. Reviewed the physical assessment, medical history, allergy history and patient home medications list prior to surgery/procedure/anesthetic and documented any changes. Performed airway and anesthesia risk assessments. Anesthesia Type Anesthesia Type: MAC (see pre anesthesia written record for full assessment) Anesthesia Focused Assessment* Airway Assessment Mouth opens: >3 cm Mallampati Score: II Focused Labs Anesthesia Preop lab: CBC WBC 12.0 K/mm3 (4.4-11.0) H 05/13/20 11:28 RBC 3.78 M/mm3 (4.2-5.4) L 05/13/20 11:28 Hgb 11.4 g/dL (12.0-15.0) L 05/13/20 11:28 Hct 34.4 % (37-47) L 05/13/20 11:28 Plt Count 298 K/mm3 (150-450) 05/13/20 11:28 CHEMISTRY Potassium 4.0 mmol/L (3.5-5.1) 05/13/20 11:28 Sodium 140 mmol/L (136-145) 05/13/20 11:28 BUN 12 mg/dL (7-18) 05/13/20 11:28 Creatinine 0.67 mg/dL (0.55-1.02) 05/13/20 11:28 Glucose 87 mg/dL (74-106) 05/13/20 11:28 COAG Pre-Assessment Diagnosis/Proposed Procedure Planned Operative Procedure(s): EGD Anesthesia History Anesthesia History - lead enterprise architect: Anesthesia History - lead enterprise architect Hx Hospitalization No 11/07/23 10:05 Any Problems With Anesthesia No 11/07/23 10:05 Cholinesterase deficiency No 11/07/23 10:05 You/Your Family Experience No 11/07/23 10:05 fever (hyperthermia) with Relationship Recent Exposure to Contagious Disease Does patient have nerve No 11/07/23 10:05 stimulator Patient instructed to have device shut off --Does patient have Pacemaker or ICD? When Was Last Pacemaker Check QUESTION #4 FULL TEXT: You/Your Family Experience fever (hyperthermia) with Anesthesia Last Oral Intake Last Oral intake: Last Oral Intake NPO since Meds taken in AM with sips of water? Meds patient instructed to take am of surgery PONV PONV - lead enterprise architect: PONV - lead enterprise architect Female Yes 11/07/23 10:05 HX of Motion Sickness No 11/07/23 10:05 HX of N/V After Surgery No 11/07/23 10:05 Non-Smoker Yes 11/07/23 10:05 Duration of Surgery greater No 11/07/23 10:05 than 60 minutes Number of Risk Factors 2 11/07/23 10:05 PONV Score Moderate Risk 11/07/23 10:05 Height & Weight Height & Weight: Anesthesia: Height & Weight Height 5 ft 09/28/23 14:58 Respiratory Assessment Respiratory Assessment - lead enterprise architect: Respiratory Tract Infection Hx - lead enterprise architect Hx Respiratory Tract Infection No 11/07/23 10:05 STOP Sleep Apnea STOP Sleep Apnea - lead enterprise architect: STOP Sleep Apnea - lead enterprise architect Hx Hypertension No 11/07/23 10:05 Hx Sleep Apnea No 11/07/23 10:05 CPAP BIPAP Do you snore loudly (louder No 11/07/23 10:05 than talking or can be heard Do you often feel tired/ No 11/07/23 10:05 fatigued/ sleepy during daytime? Has anyone observed you stop No 11/07/23 10:05 breathing during sleep? STOP Results Negative 11/07/23 10:05 QUESTION #5 FULL TEXT : Do you snore loudly (louder than talking or can be heard through closed doors)? Tobacco Use History Tobacco Use History - lead enterprise architect: Tobacco Use History - lead enterprise architect Tobacco Use Smoking Status Never smoker 11/07/23 10:05 Hx Tobacco Use No 11/07/23 10:05 Years Smoking Packs Smoked per Day Smoking Cessation Date was within the last 15 years Hx Smoking Cessation Date Hx Smoking Cessation Counseling Hematologic Medial History Hematologic Hx - lead enterprise architect: Hematologic Medical Hx - main entree cook and cashier Hx of Blood Transfusion No 11/07/23 10:05 Hx of Transfusion in last 3 No 11/07/23 10:05 Months Date of Last Transfusion (if within last 3 months) Ever experience any problems No 11/07/23 10:05 with transfusion(s)? Specify any problems Hx of Preganancy in last 3 No 11/07/23 10:05 Months Nurse Filling Out Transfusion VCHRISTIN 11/07/23 10:05 & Questions: Date: 11/07/23 11/07/23 10:05 Time: 10:06 11/07/23 10:05 Patient unable to answer at this time (ie. confused, unrespo /Reproduction History /Reproductive History - lead enterprise architect: /Reproductive Hx- lead enterprise architect Hx Now No 11/07/23 10:05 Gestational Age (in weeks): EDC: Hx Hx Para Hx Section SAB No 11/07/23 10:05 Active Medications Active Medications: Current Medications Generic Name Dose Route Start Last Admin Trade Name Freq PRN Reason Stop Dose Admin Lactated Ringer's 1,000 mls @ 15 mls/hr 11/09/23 11:45 IV .Q48H STACY PFSH Medical History Wears glasses Anxiety Diabetes Abdominal pain intolerance to labor, delivered, current hospitalization Positive GBS test Uterine contractions Multiparous 40 weeks gestation of Depression History of DVT (deep vein thrombosis) Active labor Home Medications ?Medication ?Instructions ?Recorded ?Last Taken ?Type acetaminophen 500 mg tablet 500 mg PO Q6H PRN pain 11/07/23 Unknown History ibuprofen 600 mg tablet 600 mg PO Q6H PRN pain 11/07/23 Unknown History metformin 500 mg tablet 500 mg PO DAILY 11/07/23 Unknown History Allergy/AdvReac Type Severity Reaction Status Date / Time codeine Allergy Vomiting Verified 11/07/23 09:56 Penicillins Allergy Rash Verified 11/07/23 09:56 Family History Father Arthritis Diabetes Hypertension Grandmother Cancer ovarian Heart disease Diabetes Uncle Diabetes Grandfather Diabetes Surgical History History of thumb surgery History of shoulder surgery History of arthroscopic knee surgery History of repair of ACL Delivery by section Social History Smoking Status: Never smoker alcohol intake: never substance use type: does not use Review of Systems (Anesthesia) ROS Narrative System reviewed and no additional complaints, except as documented.
[2023-11-09 11:50] LABS: Internal QC Validated? YES +Cl - CLEAR BKGD; Pregnancy, Urine Negative Negative
[2023-11-09] MEDS: Lactated Ringers 1,000 ML 15 ML IV (12:03)
--- NOTE | 2023-11-09 12:19 | H&P.OPEN ---
HPI - General General Date of Service: 11/09/23 HPI Narrative BRIANDA PIZARRO, is a 33 F who presents for an EGD due to epigastric and right upper quadrant pain. Patient states is pretty constant currently rates it a 2/10 can get up to 4/10. Patient states that if she eats a large meal does not matter what the food is she will have increased discomfort usually is more at night may get some nausea. Patient was prescribed omeprazole and took it for about 3 weeks beginning of September and has not been on it since. Patient did have a HIDA scan which was normal at 59%. [facility] Medical History Wears glasses Anxiety Diabetes Abdominal pain intolerance to labor, delivered, current hospitalization Positive GBS test Uterine contractions Multiparous 40 weeks gestation of Depression History of DVT (deep vein thrombosis) Active labor Home Medications ?Medication ?Instructions ?Recorded ?Last Taken ?Type acetaminophen 500 mg tablet 500 mg PO Q6H PRN pain 11/07/23 Unknown History ibuprofen 600 mg tablet 600 mg PO Q6H PRN pain 11/07/23 Unknown History metformin 500 mg tablet 500 mg PO DAILY 11/07/23 11/08/23 19:00 History Allergy/AdvReac Type Severity Reaction Status Date / Time codeine Allergy Vomiting Verified 11/09/23 11:53 Penicillins Allergy Rash Verified 11/09/23 11:53 Family History Father Arthritis Diabetes Hypertension Grandmother Cancer ovarian Heart disease Diabetes Uncle Diabetes Grandfather Diabetes Surgical History History of thumb surgery History of shoulder surgery History of arthroscopic knee surgery History of repair of ACL Delivery by section Social History Smoking Status: Never smoker alcohol intake: never substance use type: does not use Past Medical/Surgical History Planned Operation Planned Operative Procedure(s): EGD Previous Hospitalizations/Surgeries HX Hospitalizations: No Any Problems With Anesthesia: No You/Your Family Experience Fever (Hyperthermia) With Anes: No Cholinesterase deficiency: No Cardiovascular Hx of Irregular Heartbeat and/or Afib: No Hx Heart Attack: No Hx Congestive Heart Failure: No Hx Rheumatic Fever: No Hx Hypertension: No Hx Internal Defibrillator: No Hx Pacemaker: No Respiratory HX of Shortness of Breath: No Hx Chronic Obstructive Pulmonary Disease (COPD): No Hx Asthma: No Hx Emphysema: No Hx Sleep Apnea: No Hx Respiratory Tract Infection/Cold (presently): No Do You Snore Loudly (louder than talking or can be heard): No Do You Often Feel Tired/ Fatigued/ Sleepy Dring Daytime?: No Has Anyone Observed You Stop Breathing During Sleep?: No Result (for STOP score): Negative Hx Smoking: No Smoking Status: Never smoker Gastrointestinal Hx Ulcer: No Neurological Hx Seizures: No Hx Multiple Sclerosis: No Hx Parkinson's Disease: No Hx Head/Neck Injury: No Hx Headaches: No Hx Back Injury/Pain: No Does patient have nerve stimulator: No Blood Disorder Hx Hepatitis: No Hx Anemia: No Reproduction : No Is Patient Lactating: No Musculoskeletal Hx Arthritis: No Hx Gout: No Endocrine Hx Diabetes: No Thyroid Disease: No Psycho/Social Hx Anxiety: Yes Hx Depression: No Hx Dementia: No Miscellaneous Hx Cancer: No Recent Exposure to Contagious Disease: No Allergies codeine Allergy (Verified 11/09/23 11:53) Vomiting Penicillins Allergy (Verified 11/09/23 11:53) Rash Discharge Is Pt Admitted From a [facility], or a Half-Way: No After D/C, Where Do you Plan to Go: Return Home Vital Signs Vital Signs Vital Signs: 11/09/23 11:54 11/09/23 11:55 Temperature 97.4 F L Temperature Source Temporal Pulse Rate 66 Respiratory Rate 16 Respiratory Pattern Normal Blood Pressure 114/83 H Blood Pressure Mean 93 Blood Pressure Source Monitor Blood Pressure Position Semi-Fowlers Blood Pressure Location Right Arm Pulse Ox 100 Oxygen Delivery Method Room Air Weight Weight: 136 lb 6.4 oz Body Mass Index (BMI) 26.6 Physical Exam Const alert, oriented x3 and no apparent distress HEENT normocephalic and head/scalp atraumatic Resp normal respiratory effort Cardio regular rate GI soft to palpation; Negative for non-distended GI Narrative: Minimal tenderness palpation epigastric and right upper quadrant, no peritoneal signs Palpation: Negative for guarding Extremity no clubbing, cyanosis or edema Skin no rashes or lesions noted Neuro CN's II-XII intact bilaterally Psych mental status grossly normal Assessment & Plan Assessment/Plan (1) Epigastric abdominal pain: (2) RUQ pain: Surgery Risks - Colonoscopy I discussed with the patient the risks of the procedure: Yes Risks Include but are not Limited To: Risks include but are not limited to: Bleeding, perforation requiring further surgery
--- NOTE | 2023-11-09 12:30 | IMM_PTH ---
PATIENT: BRIANDA PIZARRO LOC: EN U#:[id number] AGE/SX: 33/F ROOM: RE11/09/[address]: Dr. Anusha Bass MD : 1990 BED: DIS: 11/09/2023 SPEC #: [id number] RECD: 11/10/23 09:35 STATUS: RUBY REMaria Luisa #: [id number] TYRESE: 11/09/23 12:[address]: Anusha Bass DEPT: IMMUNOHISTOCHEMISTRY RECD BY: Ramirez Taylor ENTERED: 11/10/23 09:35 SP TYPE: IMMUNO OTHR DR: Stuart Chavez, GLASSWARE ENGRAVER-C Tissues: Gastric mucous membrane Procedures: H Pylori (initial) PHYSICIAN & INSTITUTION [place] [id number] SPECIMEN INFORMATION: Tissue Source: Antrum biopsy Clinical Info: Epigastric pain, right upper quadrant pain Specimen Number: [id number] CPT code: 13624 METHODOLOGY: Deparaffinized sections of prefer/formalin-fixed tissue or PAP/DQ stained slides are incubated with monoclonal/polyclonal antibodies/oligonucleotide probes. Localization is made via biotin free immunoperoxidase method. Appropriate controls are performed and reacted as expected. Results on target cell population are indicated in the following table: RESULTS: ANTIBODY / CLONE RESULT H Pylori (polyclonal) negative These tests were developed and their performance characteristics determined by [facility]. They may not have been cleared or approved by the U.S. Food and Drug Administration. The FDA has determined that such clearance or approval is not necessary. The above immunohistochemical/dualISH markers are ordered and reviewed by the Pathologist. INTERPRETATION: Antrum, biopsy: Negative for Helicobacter pylori organisms. MARCI/ 11/13/2023
--- NOTE | 2023-11-09 12:55 | PCM.POST.ANE ---
Anesthesia: Postop Eval I Current Vital Signs Temperature: 97.6 F Pulse Rate: 76 Blood Pressure: 105/78 Respiratory Rate: 16 Pulse Ox: 96 Oxygen Delivery Method: Room Air Assessment Airway patent: Yes Spontaneous unlabored respirations: Yes Mental status: Awake (AROUSABLE) and Calm nausea: No Vomiting: No Anesthesia Complication: No Fluid Hydration Crystalloid volume administer (ml): 200 Total IV fluid infused: 200 Progress Note Anesthesia document: Postop Eval 1 completed: Yes
--- NOTE | 2023-11-09 12:57 | OP.CCLET_ITS ---
11/09/2023 Stuart Chavez Re : Upper GI endoscopy procedure for Karla Holtr Scott This procedure was performed on October. My impressions and recommendations are as follows: Impressions : - Z-line variable, 35 cm from the incisors. - Normal examined duodenum. - Erythematous mucosa in the antrum. Biopsied. Recommendations : - Await pathology results. - Discharge patient to home. - Resume previous diet. - Use Prilosec (omeprazole) 40 mg PO daily. - Use sucralfate tablets 1 gram PO QID for 2 weeks. - Continue present medications. My findings are described in the full procedure note, which is enclosed. If I can be of further assistance, please feel free to contact me at Doctor phone number(s): , Work: . Sincerely, MD Anusha Germain MD 11/09/2023 12:56:49 PM This report has been signed electronically.
--- NOTE | 2023-11-09 12:57 | OP.EGD_ITS ---
Patient Name: Karla Ladd Procedure Date: 11/09/2023 11:44 AM Date of : 1990 Age: 33 Procedure: Upper GI endoscopy Indications: Epigastric abdominal pain, Abdominal pain in the right upper quadrant Providers: Anusha Bass MD Referring MD: Stuart Chavez Medicines: Monitored Anesthesia Care Patient Profile: This is a 33 year old female. Complications: No immediate complications. Procedure: Pre-Anesthesia Assessment: - Prior to the procedure, a History and Physical was performed, and patient medications and allergies were reviewed. The patient's tolerance of previous anesthesia was also reviewed. The risks and benefits of the procedure and the sedation options and risks were discussed with the patient. All questions were answered, and informed consent was obtained. Prior Anticoagulants: The patient has taken no anticoagulant or antiplatelet agents. ASA Grade Assessment: Per anesthesia. After reviewing the risks and benefits, the patient was deemed in satisfactory condition to undergo the procedure. After obtaining informed consent, the endoscope was passed under direct vision. Throughout the procedure, the patient's blood pressure, pulse, and oxygen saturations were monitored continuously. The Endoscope was introduced through the mouth, and advanced to the second part of duodenum. The upper GI endoscopy was accomplished without difficulty. The patient tolerated the procedure well. Scope In: 12:45:03 PM Scope Out: 12:48:44 PM Total Procedure Duration Time 0 hours 3 minutes 41 seconds Findings: The Z-line was variable and was found 35 cm from the incisors. The examined duodenum was normal. Striped mildly erythematous mucosa without bleeding was found in the gastric antrum. Biopsies were taken with a cold forceps for histology. Biopsies were taken with a cold forceps for Helicobacter pylori cultures. The cardia and gastric fundus were normal on retroflexion. Impression: - Z-line variable, 35 cm from the incisors. - Normal examined duodenum. - Erythematous mucosa in the antrum. Biopsied. Recommendation: - Await pathology results. - Discharge patient to home. - Resume previous diet. - Use Prilosec (omeprazole) 40 mg PO daily. - Use sucralfate tablets 1 gram PO QID for 2 weeks. - Continue present medications. Procedure Code(s): --- Professional --- 81969, Esophagogastroduodenoscopy, flexible, transoral; with biopsy, single or multiple Diagnosis Code(s): --- Professional --- K22.89, Other specified disease of esophagus K31.89, Other diseases of stomach and duodenum R10.13, Epigastric pain R10.11, Right upper quadrant pain CPT copyright 2021 [employer]. All rights reserved. The codes documented in this report are preliminary and upon him coder review may be revised to meet current compliance requirements. MD Anusha Germain MD 11/09/2023 12:56:49 PM This report has been signed electronically. Number of Addenda: 0 Note Initiated On: 11/09/2023 11:44 AM
--- NOTE | 2023-11-10 11:16 | POSTOPAN2_ITS ---
Anesthesia Postop Eval I Sum Postop Eval Completion status Anesthesia document: Postop Eval 1 completed: Yes Anesthesia Postop Eval I Summary Anesthesia Postop Eval I Summary: Anesthesia Postop Eval I: Assessment Summary Airway patent Yes 11/09/23 12:56 [email or web address] Spontaneous unlabored Yes 11/09/23 12:56 [email or web address] respirations Mental status Awake - AROUSABLE, 11/09/23 12:56 [employer]NAGER [email or web address] Calm nausea No 11/09/23 12:56 [email or web address] Vomiting No 11/09/23 12:56 [email or web address] Anesthesia Postop Eval I: Fluid Summary Crystalloid volume administer 200 11/09/23 12:56 MANAGER [email or web address] (ml) Colloids volume administered ( ml) Blood Product volume administered (ml) Total IV fluid infused 200 11/09/23 12:56 [email or web address] Anesthesia Postop Eval I: Summary Notes Anesthesia Complication No 11/09/23 12:56 [email or web address] Anesthesia Complication Comment: Post-operative progress note Anesthesia: Postop Eval II Evaluation Mental status: Awake and Calm Pain Level: 0 nausea: No Vomiting: No Complications Anesthesia Complication: No
--- NOTE | 2023-11-10 11:16 | PCM.POSTANE2 ---
Anesthesia Postop Eval I Sum Postop Eval Completion status Anesthesia document: Postop Eval 1 completed: Yes Anesthesia Postop Eval I Summary Anesthesia Postop Eval I Summary: Anesthesia Postop Eval I: Assessment Summary Airway patent Yes 11/09/23 12:56 [email or web address] [email or web address] Spontaneous unlabored Yes 11/09/23 12:56 RIB [email or web address] respirations Mental status Awake - AROUSABLE, 11/09/23 12:56 [email or web address] [email or web address] Calm nausea No 11/09/23 12:56 RIB [email or web address] Vomiting No 11/09/23 12:56 [email or web address] [email or web address] Anesthesia Postop Eval I: Fluid Summary Crystalloid volume administer 200 11/09/23 12:56 RIB [email or web address] (ml) Colloids volume administered ( ml) Blood Product volume administered (ml) Total IV fluid infused 200 11/09/23 12:56 RIB [email or web address] Anesthesia Postop Eval I: Summary Notes Anesthesia Complication No 11/09/23 12:56 [email or web address] Anesthesia Complication Comment: Post-operative progress note Anesthesia: Postop Eval II Evaluation Mental status: Awake and Calm Pain Level: 0 nausea: No Vomiting: No Complications Anesthesia Complication: No
== END 2023-11-09 13:43 | disposition home or self-care (01) ==
LOC: EN 11:36 → AC 11:37
PROVIDERS: Anesthesiology; PCP Nurse Practitioner Family; Referring Provider Nurse Practitioner Family; Visit Provider Surgery
PROC: 0DJ08ZZ Inspection of Upper Intestinal Tract, Via Natural or Artificial Opening Endoscopic (ICD-10-PCS; CPT 43235; principal; 2023-11-09 12:25)
DX: R10.13 Epigastric pain (principal); E11.9 Type 2 diabetes mellitus without complications; Z79.84 Long term (current) use of oral hypoglycemic drugs; R10.11 Right upper quadrant pain; K31.89 Other diseases of stomach and duodenum
CPT/HCPCS: 43239; 81025; 88305; 88342

== ENCOUNTER 2024-02-05 11:23 | Emergency (ER) | payer OTHER, SELFPAY ==
[2024-02-05 11:25] VITALS: BP 144/101; PULSE 99; RESP 18; TEMP 35.8; O2SAT 100; BMI 26.7
--- NOTE | 2024-02-05 11:57 | EKG12_ITS ---
Test Reason : Blood Pressure : / mmHG Vent. Rate : 078 BPM Atrial Rate : 078 BPM P-R Int : 168 ms QRS Dur : 086 ms QT Int : 382 ms P-R-T Axes : 052 070 018 degrees QTc Int : 435 ms Normal sinus rhythm Normal ECG Confirmed by Ravi Elizalde ([id number]), assistant editor LINDA ROWLAND ([id number]) on 02/06/2024 8:26:10 AM Referred By: Confirmed By:Ravi Elizalde
--- NOTE | 2024-02-05 11:57 | CT_ITS ---
STUDY: CTA CHEST REASON FOR EXAM: Female, 33 years old. dyspnea, recent ortho surg, hx DVT RADIATION DOSAGE (If Supplied By Facility): CTDIvol = ( 15.34 ) mGy, DLP = ( 381.05 ) mGycm TECHNIQUE: The examination was performed with the intravenous administration of IV 100mL Isovue-370. Post-processing of the angiographic images was performed, with multiplanar reformation and 3D reconstruction. Individualized dose optimization techniques were used for this CT. COMPARISON: None. FINDINGS: Normal enhancement of the main pulmonary artery and right and left pulmonary arteries. Normal enhancement of the bilateral peripheral pulmonary arteries. There is no demonstrated pulmonary embolism. Normal thoracic aorta and visualized great vessels. There is no demonstrated aortic dissection. Normal heart and pericardium. Normal mediastinum. Normal hilar regions. Normal visualized trachea and bronchi. The visualized lungs are well expanded. Exam limited because the costophrenic angles are excluded from [id number]. Normal pulmonary parenchyma. Normal pleura. Normal chest wall structures. Normal osseous structures. Normal visualized upper abdomen. CT/CTA Chest W/WO Contrast IMPRESSION: Normal CTA chest examination, without a demonstrated pulmonary embolism or arterial dissection. Evaluation of lungs limited by suboptimal positioning-costophrenic angles excluded from the field of view. No gross cardiopulmonary disease. Electronically Signed: Dennis Aragon MD at 14:22 EDT ,
--- NOTE | 2024-02-05 11:57 | CT_ITS ---
PrSTUDY: CT BRAIN WITHOUT CONTRAST REASON FOR EXAM: Female, 33 years old. headache, recent anticoag RADIATION DOSAGE (If Supplied By Facility): CTDIvol = ( 44.99 ) mGy, DLP = ( 745.49 ) mGycm TECHNIQUE: Transaxial CT imaging of the brain was performed without administration of intravenous contrast material. Individualized dose optimization techniques were used for this CT. COMPARISON: 05/13/2020 FINDINGS: Normal soft tissue structures. Normal calvarium. Normal size ventricles and extra-axial spaces for the patient''s age. Normal white matter tracts of the cerebral hemispheres. Normal basal ganglia and thalami. Normal brainstem. Normal cerebellum. There is no intracranial hemorrhage. There are no findings of an acute ischemic infarction. Normal visualized paranasal sinuses. CT/Brain/Head without Contrast IMPRESSION: Normal unenhanced CT scan of the brain. Electronically Signed: Dennis Aragon MD at 14:11 EDT ,
--- NOTE | 2024-02-05 11:58 | ED.VIS.DYS ---
HPI History of Present Illness Chief Complaint: Shortness of Breath Informant: patient Narrative Narrative: 33-year-old female had the third surgery on her ACL at the end of November, she had prior postoperative DVTs years ago, and because of this she was on Eliquis for 1 month after her surgery, she finished the Eliquis about 2 weeks ago. She has been doing physical therapy. She was there today, and she was dyspneic with very little exertion, which is the first time that has happened since her surgery. She denies any pleuritic chest pains but she does admit to having some mild central chest tightness right now. She denies any pain or swelling in her calves or anything in her legs distal to the left knee which has been doing relatively well. She denies any other systemic symptoms or recent syncope or near syncope. [facility] Medical History Wears glasses Anxiety Diabetes Abdominal pain intolerance to labor, delivered, current hospitalization Positive GBS test Uterine contractions Multiparous 40 weeks gestation of Depression History of DVT (deep vein thrombosis) Active labor Home Medications ?Medication ?Instructions ?Recorded ?Last Taken ?Type acetaminophen 500 mg tablet 500 mg PO Q6H PRN pain 11/07/23 Unknown History ibuprofen 600 mg tablet 600 mg PO Q6H PRN pain 11/07/23 Unknown History metformin 500 mg tablet 500 mg PO DAILY 11/07/23 11/08/23 19:00 History omeprazole 40 mg capsule,delayed 40 mg PO DAILY #30 caps 11/09/23 Unknown Rx release sucralfate 1 gram tablet 1 g PO 4X/DAY #56 tabs 11/09/23 Unknown Rx Allergy/AdvReac Type Severity Reaction Status Date / Time Penicillins Allergy Rash Verified 02/05/24 11:24 Family History Father Arthritis Diabetes Hypertension Grandmother Cancer ovarian Heart disease Diabetes Uncle Diabetes Grandfather Diabetes Surgical History History of thumb surgery History of shoulder surgery History of arthroscopic knee surgery History of repair of ACL Delivery by section Social History Smoking Status: Never smoker alcohol intake: never substance use type: does not use ROS ROS ED Constitutional Constitutional ED: Denies chills or fever(s) Eyes Eyes: Denies change in vision or diplopia ENT ENT ED: Denies rhinorrhea or sore throat Cardiovascular Cardiovascular: Reports chest pain; Denies lightheadedness, palpitations, pedal edema, radiating jaw, neck or arm pain or syncope Respiratory/Chest Respiratory/Chest: Reports dyspnea on exertion; Denies cough Gastrointestinal Gastrointestinal: Denies abdominal pain, diarrhea, nausea or vomiting Genitourinary Genitourinary ED: Denies dysuria or hematuria Musculoskeletal Musculoskeletal: Denies back pain or neck pain Integumentary Denies abscess or rash Neurologic Neurologic: Denies headache(s), paresthesias or weakness Psychiatric Psychiatric: Denies anxiety or suicidal thoughts EXAM Physical Exam Const Vital Signs: 02/05/24 11:25 02/05/24 11:43 02/05/24 12:06 Temperature 96.5 F L Temperature Source Temporal Pulse Rate 99 Respiratory Rate 18 Respiratory Effort Short of Breath Respiratory Pattern Normal Blood Pressure 144/101 H Blood Pressure Mean 115 Pulse Ox 100 Oxygen Delivery Method Room Air Room Air 02/05/24 13:24 Temperature Temperature Source Pulse Rate 74 Respiratory Rate 12 Respiratory Effort Respiratory Pattern Blood Pressure 130/96 H Blood Pressure Mean 107 Pulse Ox 100 Oxygen Delivery Method Room Air Positive well nourished and well developed General Appearance ED: well developed and NAD HEENT Reports moist mucous membranes normocephalic and atraumatic Eyes PERRL and EOMs intact bilaterally Neck full ROM, supple and no JVD Resp normal respiratory effort and clear to auscultation bilaterally Effort and Inspection: able to speak in complete sentences Cardio regular rate, regular rhythm and no murmurs GI non-tender and non-distended Auscultation: normoactive bowel sounds Palpation: soft Back/Spine no CVA tenderness General Back: other FROM Extremity normal to inspection Extremity Narrative: no calf tenderness General Extremety ED: Negative for edema, pulses abnormal or tenderness General Extremity: Negative for edema or pulses abnormal Neuro oriented x3, CN's II-XII intact bilaterally and no sensory deficits noted Sensorium / Orientation: awake and alert Motor Exam: strength 5/5 throughout Skin no rashes or lesions noted and no wounds MDM MDM MDM Narrative Medical decision making narrative: This patient is high pretest probability for PE, she has borderline tachycardia but her pulse ox is excellent, therefore I do not think it is worth taking the time to do a D-dimer and a chest x-ray, rather I am obtaining CT angiography directly in addition to a plain CT of the head given the unusual headache she has had for over a week and recently had anticoagulants, seen as it is possible she may need anticoagulation now if she has an acute PE. Patient underwent the CT examinations along with blood work, shows no anemia or renal failure, her EKG is normal, I reviewed the imaging of the head and the chest as well as the report which I agree with. Negative for pulmonary embolus, negative for other acute pulmonary disease, and negative for acute intracranial hemorrhage. Patient reassured, her vital signs are normal, she was concerned about her blood pressure being 144/101, on reevaluation she is 106/70, and I reassured her about these numbers. Those are nonemergent and they can fluctuate on a normal basis. They did do some orthostatics before saw the patient and they were positive she is encouraged to drink plenty of fluids today. At this time she is stable for discharge home there is no indication for anticoagulation here or to repeat leg ultrasounds and she is stable to follow-up. Lab Data Attestation: I reviewed the patient's lab results. Labs: Laboratory Results - last 24 hr 02/05/24 12:04 WBC 7.8 RBC 4.20 Hgb 12.1 Hct 37.2 MCV 88.6 MCH 28.8 MCHC 32.5 RDW Std Deviation 41.7 RDW Coeff of Shade 12.8 Plt Count 370 MPV 10.0 Immature Gran % (Auto) 0.400 Neut % (Auto) 55.5 Lymph % (Auto) 30.6 Collier % (Auto) 6.2 Eos % (Auto) 6.4 H Baso % (Auto) 0.9 Absolute Neuts (auto) 4.3 Absolute Lymphs (auto) 2.38 Nucleated RBC % 0 Sodium 139 Potassium 3.8 Chloride 108 H Carbon Dioxide 25.0 Anion Gap 6 BUN 11 Creatinine 0.80 Estim Creat Clear Calc 81.59 Est GFR (MDRD) Af Amer 105 Est GFR (MDRD) Non-Af 87 BUN/Creatinine Ratio 13.7 Glucose 99 Calcium 9.4 Troponin I High Sens < 3 L Radiography Diagnostic Testing: Clinical Impression(s) from Imaging Studies Brain CT 02/05/24 11:57 IMPRESSION: Normal unenhanced CT scan of the brain. Electronically Signed: Dennis Aragon MD at 14:11 EDT , Chest CTA 02/05/24 11:57 IMPRESSION: Normal CTA chest examination, without a demonstrated pulmonary embolism or arterial dissection. Evaluation of lungs limited by suboptimal positioning-costophrenic angles excluded from the field of view. No gross cardiopulmonary disease. Electronically Signed: Dennis Aragon MD at 14:22 EDT , Rhythm Strip Rhythm Strip: Sinus Rhythm Rate: 100 Ectopy: None EKG Initial EKG: Attestation: I personally reviewed and interpreted this EKG as follows: Interpretation: Sinus Rhythm and No Acute Injury Pattern Comments: Normal EKG rate 78 Discharge Plan Triage Chief Complaint: Shortness of Breath Other Complaint: Hypertension ED Provider: Vimal Pepper Dx/Rx/DC Orders Clinical Impression: LI (dyspnea on exertion), Orthostasis Instructions: ED Dyspnea Prescriptions: No Action metformin 500 mg tablet 500 mg PO DAILY acetaminophen 500 MG tablet 500 mg PO Q6H PRN (Reason: pain) ibuprofen 600 MG tablet 600 mg PO Q6H PRN (Reason: pain) sucralfate 1 gram tablet 1 g PO 4X/DAY Qty: 56 0RF Rx Instructions: Take 1 hour before meals and at bedtime omeprazole 40 mg capsule,delayed release(DR/EC) 40 mg PO DAILY Qty: 30 2RF Primary Care Provider: Stuart Chavez NP Referrals: Stuart Chavez [employer] ROLLING MACHINE TENDER, G[employer] RO[employer]ING MACHINE TENDER-C [Primary Care Provider] - 3-5 Days if not improving Activity Restrictions/Additional Instructions: With regards to the fact that you were orthostatic earlier, just drink plenty of fluids today. Print Language: Portuguese Disposition Disposition: Home, Self Care
[2024-02-05 12:25] LABS: Absolute Lymphocyte Count 2.38 X10^3/uL (0.83-4.51); Absolute Neutrophil Count 4.3 X10^3/uL (2.0-7.7); Basophil# 0.07 X10^3/uL; Basophil% 0.9 % (0-1); Eosinophils% 6.4 % (0-5); Hematocrit 37.2 % (37-47); Hemoglobin 12.1 g/dL (12.0-15.0); Lymphocyte # 2.38 X10^3/ul (0.83-4.51); Lymphocyte % 30.6 % (19-41); Mean Corp Hgb Conc 32.5 g/dL (32-36); Mean Corpuscular Hgb 28.8 pg (27.0-32.0); Mean Corpuscular Volume 88.6 fL (81-99); Monocyte# 0.48 X10^3/uL; Monocyte% 6.2 % (0-10); NRBC Flagged by Analyzer 0 % (0-5); Neutrophil # 4.32 X10^3/uL (2.7-7.7); Neutrophil % 55.5 % (47-70); Platelet Count 370 K/mm3 (150-450); RBC Distribution Width CV 12.8 % (11.6-14.6); RBC Distribution Width SD 41.7 fl (35.1-43.9); White Blood Count 7.8 K/mm3 (4.4-11.0)
[2024-02-05 12:47] LABS: Anion Gap 6 (5-15); BUN 11 mg/dL (7-18); BUN/Creat Ratio 13.7 RATIO (10-20); Calcium,Total 9.4 mg/dL (8.5-10.1); Chloride 108 mmol/L (98-107); EST Glomerular Filtration Rate 87 mL/min (>60); Est Glom Filt Rate - Afr Amer 105 mL/min (>60); Estimated Creatinine Clearance 81.59 ml/min; Glucose 99 mg/dL (74-106); Potassium 3.8 mmol/L (3.5-5.1); Sodium Level 139 mmol/L (136-145); Troponin-I HS < 3 pg/mL (3.0-54.0)
[2024-02-05 13:24] VITALS: BP 130/96; PULSE 74; RESP 12; O2SAT 100
[2024-02-05 15:00] VITALS: BP 124/93; PULSE 73; RESP 18; O2SAT 99
[2024-02-05 15:58] VITALS: BP 136/86; PULSE 80; RESP 16; TEMP 36.9; O2SAT 100
== END 2024-02-05 16:03 | disposition home or self-care (01) ==
PROVIDERS: Emergency Provider Emergency Medicine; PCP Nurse Practitioner Family; Visit Provider Emergency Medicine
DX: R06.09 Other forms of dyspnea (principal); E11.9 Type 2 diabetes mellitus without complications; I10 Essential (primary) hypertension; F41.9 Anxiety disorder, unspecified; F32.A Depression, unspecified; Z79.84 Long term (current) use of oral hypoglycemic drugs; Z79.899 Other long term (current) drug therapy; Z86.718 Personal history of other venous thrombosis and embolism
CPT/HCPCS: 70450; 71275; 80048; 84484; 85025; 93005; 99285; Q9967; A4216